=== PATIENT | male | born 1955 | race Caucasian/White ===

== ENCOUNTER 2024-12-22 13:48 | Outpatient (AMB) | payer MEDICARE, SELFPAY ==
--- NOTE | 2024-12-22 13:57 | A.OFFVIS_ITS ---
Intake Visit Reasons: BPH/nocturia Intake Note: Patient is present for BPH/NOCTURIA Urology Medication:TAMSULOSIN Antibiotic Allergy:NONE Blood Thinner:NONE TODAY'S PVR:0ML'S Sod Stripper Required: No Allergies No Known Allergies Allergy (Verified 12/22/24 15:45) Medication List - Last Reviewed 12/22/24 by GRETEL Xie amlodipine 5 mg PO DAILY carvedilol 25 mg PO BID cetirizine 10 mg PO DAILY dulaglutide (Trulicity) mg subcut gabapentin 300 mg PO Q12H isosorbide mononitrate ER 60 mg PO DAILY metformin 500 mg PO QAM omeprazole 20 mg PO DAILY simvastatin 40 mg PO BEDTIME tamsulosin mg PO HPI Comments Details: Mark is a pleasant 69-year-old Nigerian-speaking male patient of Dr. 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 He presents to the office today as a new patient for ongoing lower urinary tract symptoms he has been experiencing. In discussion with the patient today he reports for few months he has been experiencing issues with dysuria, nocturia, urinary frequency, and intermittent right-sided scrotal discomfort. He reports following up with his PCP at which time recommendations were made for urology referral for further assessment evaluation. He brings with him a letter from the PCP that notes an elevated PSA. In further review of patient's medical records it appears PSAs are as follows: PSA 09/20 4.2, 11/20 4.3 When asked he denies any known family history of prostate cancer. RACHEL was performed left-side of the prostate was noted to be boggy otherwise no nodules or masses palpated. We did discussed potential for prostatitis. We discussed potential causes of prostatitis, lower urinary tract symptoms patient is experiencing, as well as intermittent episodes of right-sided testicular discomfort. He denies hematuria, foul smelling urine, changes to urinary stream, flank pain, fever, and or chills. In office urinalysis results reviewed with the patient today. PVR 0 mL. All questions were answered. He otherwise offers no other issues or concerns at this time. Review of Systems Const All systems reviewed & are unremarkable except as noted in HPI and below Physical Exam Const General: cooperative, comfortable, no acute distress, well developed, alert and awake Orientation/consciousness: patient oriented x3 Limitations: language barrier HEENT Head: Yes normal to inspection, Yes normocephalic and Yes atraumatic Ears: hearing grossly normal bilaterally Eyes General: appearance normal, both eyes and all related structures Neck Neck: Yes normal visual inspection and Yes trachea midline Chest Chest palpation & inspection: normal inspection of the chest Resp Effort & Inspection: normal respiratory effort and able to speak in complete sentences Cardio Rate: regular rate GI Inspection: Yes normal to inspection General: Yes no CVA tenderness Back/Spine/Pelvis Back: no CVA tenderness Skin General skin exam: no rashes or lesions noted Neuro General: patient oriented x3 Extrem General: Yes normal to inspection Psych Appearance: grossly normal and well kempt Mental Status: mental status grossly normal Speech and movement: Normal speech and movement present and Clear speech present Affect: normal affect Attitude: cooperative Thought process: Normal thought process present Thought content: Normal thought content present Insight: Fair insight present (Psych) Judgement: Fair judgement present (Psych) Office Procedures Post Void Residual Post Residual Void Post Void Residual (PVR): 0 52938-Ugoj Void Residual by ultrasound Results AMB Urinalysis, Automated UA Leukoctes 0 Meka/uL Last Edit by GRETEL Xie on 12/22/24 14:20 UA Nitrite Negative Last Edit by GRETEL Xie on 12/22/24 14:20 UA Urobilinogen 0.2 mg/dL Last Edit by GRETEL Xie on 12/22/24 14:2 0 UA Protein 0 mg/dL Last Edit by GRETEL Xie on 12/22/24 14:20 UA pH 6.0 Last Edit by GRETEL Xie on 12/22/24 14:20 UA Blood 0 Kelton/uL Last Edit by GRETEL Xie on 12/22/24 14:20 UA Specific Huntington 1.025 Last Edit by GRETEL Xie on 12/22/24 14: 20 UA Ketone Negative Last Edit by GRETEL Xie on 12/22/24 14:20 UA Bilirubin 0 mg/dL Last Edit by GRETEL Xie on 12/22/24 14:20 UA Glucose 0 mg/dL Last Edit by GRETEL Xie on 12/22/24 14:20 Results Reviewed Results Reviewed: Laboratory Last Values Urine pH (Auto) 6.0 12/22/24 14:19 Specific Huntington (Auto) 1.025 12/22/24 14:19 Urine Protein (Auto) 0 mg/dL 12/22/24 14:19 Glucose (UA)(Auto) 0 mg/dL 12/22/24 14:19 Urine Ketones (Auto) Negative 12/22/24 14:19 Urine Blood (Auto) 0 Kelton/uL 12/22/24 14:19 Urine Nitrite (Auto) Negative 12/22/24 14:19 Urine Bilirubin (Auto) 0 mg/dL 12/22/24 14:19 Urine Urobilinogen (Auto) 0.2 mg/dL 12/22/24 14:19 Leukocyte Esterase (Auto) 0 Meka/uL 12/22/24 14:19 Assessment & Plan Assessment & Plan (1) Elevated PSA: Code(s): R97.20 - Elevated prostate specific antigen [PSA] Category: Medical (2) Lower urinary tract symptoms: Code(s): R39.9 - Unspecified symptoms and signs involving the genitourinary system Category: Medical (3) Testicular pain: Code(s): N50.819 - Testicular pain, unspecified Category: Medical (4) Nocturia: Code(s): R35.1 - Nocturia Category: Medical (5) Urinary frequency: Code(s): R35.0 - Frequency of micturition Category: Medical Plan In office urinalysis results with the patient today; as noted above. PVR 0 mL. We did discussed potential causes of lower urinary tract symptoms, right-sided testicular discomfort, and prostatitis We discussed further treatment options of these urological conditions and risks and benefits of these treatment options. Will obtain retroperitoneal ultrasound for further assessment evaluation. Start Bactrim as discussed and prescribed. Discussed obtaining PSA status post completion of antibiotic therapy. Will obtain redraw of PSA. Will obtain scrotal ultrasound. Follow-up in 2-3 months with imaging and labs; or sooner with any issues, concerns, and or questions. Orders: Orders PSA,Total (Free>4and<10) Today N50.819 - Testicular pain, unspecified, R35.0 - Frequency of micturition, R35.1 - Nocturia, R39.9 - Unspecified symptoms and signs involving the genitourinary system, R97.20 - Elevated prostate specific antigen [PSA] AMB Urinalysis Automated Today Z13.9 - Encounter for screening, unspecified US retroperitoneal comp Today N50.819 - Testicular pain, unspecified, R35.0 - Frequency of micturition, R35.1 - Nocturia, R39.9 - Unspecified symptoms and signs involving the genitourinary system, R97.20 - Elevated prostate specific antigen [PSA] US scrotum Today N50.819 - Testicular pain, unspecified Medications: New sulfamethoxazole-trimethoprim 800-160 mg (Bactrim DS) 1 tab PO BID 28 tabs 0RF 14 days N39.0 - Urinary tract infection, site not specified Patient Instructions: The patient had an opportunity to ask questions regarding the treatment plan. All questions were answered. Physical exam, labs, and imaging were discussed and reviewed in detail. As well as risks, benefits, and discussion of treatment choices. No major barriers to understanding were identified. The patient expressed understanding and agreement with the above treatment plan. The patient was made aware they should contact our office by phone for worsening of their current condition, the appearance of new symptoms, or with any questions or concerns. Compliance is encouraged with any medications and follow up testing that is ordered. It is a privilege to be allowed the opportunity to participate in? your urological care.? Again, if you have any questions or concerns If you have any questions or concerns please do not hesitate to contact me. The office is [phone]. This note is constructed using voice recognition software. While every effort has been made to ensure accuracy primary education professor errors may have been included. Yours sincerely, DO Hall Coding Level of Care Code New Pt Level 4 (66253) Diagnoses Elevated PSA R97.20 Lower urinary tract symptoms R39.9 Testicular pain N50.819 Nocturia R35.1 Urinary frequency R35.0 CPT Codes Post Residual Void - PVR CPT Code: 38269-Yrnj Void Residual by ultrasound ([id number])
--- OUTSIDE RECORDS SUMMARY | 2024-12-22 14:45 | XMS_ITS | Encounter Summary ---
Author Organization [facility] [place] [address] Care Team Providers Care Business Analytics Intern Name Role Phone Josué King MD Primary Care Provider [phone] Reason for Visit * Reason Onset Date Comments Elevated PSA 12/14/2024 Encounter Details Date Type Department Care Team ([facility] st Contact Info) Description 12/14/2024 Telephone Adult Medicine [facility] [place] [address], [place] [phone] Orville Wheatley NP [address], [place] Social History Tobacco Use Types Packs/Day Years Used Date Smoking Tobacco: Former Smokeless Tobacco: Former Alcohol Use Standard Drinks/Week Comments No 0 (1 standard drink = 0.6 oz pur e alcohol) Sex and Gender Information Value Date Recorded Sex Assigned at Not on file Legal Sex Male 4:32 AM EST Gender Identity Not on file Sexual Orientation Not on file documented as of this encounter Progress Notes * Gerry Hernandez MA - 12/17/2024 8:34 AM EDT Patient informed PSA has been increasing. Patient states he has been following up with [facility]. He has an upcoming appointment 12/22/2024. Advised him to keep appointment. * Orville Wheatley NP - 12/16/2024 6:34 PM EDT Please follow-up on the message below * Orville Wheatley NP - 12/14/2024 7:28 AM EDT Images from the original note were not included. Patient PSA has been steadily increasing. Will refer to urology Patient is Kinyarwanda-speaking Patient was referred to urology in September 2023. It is unclear if patient has follow-up with urology. Please see referral below. Please call patient and confirm that he has an appointment with urology or has to seen urology. If patient has not seen urology, please provide phone number and address for patient to schedule appointment. 10/14/24 Mark Ford [address] [place] [phone] Dear Mark, After review of the medical information and benefit coverage, [email or web address] [facility] approved your referral. See below for additional details. If you have questions regarding this referral, please contact ([email or web address]). You must be actively enrolled in [email or web address] [facility] for coverage of the authorized service. If you have additional questions regarding your coverage, please contact [facility] [facility] [email or web address] [facility] directly. REFFERAL INFORMATION Referral #: [id number] Authorization#: Auth Status: Authorized Reason: No Approval Necessary - Patient Tracking Referred By Provider: Josué King [address] [facility] [phone] Referred To Provider: [facility] - Urology [address] [place] [address] [place] [phone] Referral Start Date: 10/14/2024 Referral End Date: 10/14/2025 SCHEDULING If you do not already have an appointment, please call [phone] to make an appointment. MORE INFORMATION You can access your medical information, lab results and billing information online at [email or web address]. Sincerely, Referral Relations Department [facility] . documented in this encounter Plan of Treatment Upcoming Encounters Date Type Department Care Team (Late st Contact Info) Description 12/23/2024 10:15 AM EDT Office Visit Adult Medicine [address] [phone] Orville Wheatley NP [address] [place] [address] 02/11/2025 10:00 AM EDT Office Visit Orthopedic Surgery - [address] [phone] Stone Al, DPColleen [address] [place] [phone] documented as of this encounter Visit Diagnoses Not on filedocumented in this encounter Additional Health Concerns Assessment Noted Time PHQ-9 Depression Total Score: 0 06/09/19 25 11:04 AM EST A fall risk assessment has been complete d for the patient 06/09/2024 10:57 AM EST documented as of this encounter Care Teams Business Analytics Intern Relationship Specialty Start Date End Date Josué King MD [address] [place] [address] PCP - General Internal Medicine 01/26/21 documented as of this encounter
--- OUTSIDE RECORDS SUMMARY | 2024-12-22 14:45 | XMS_ITS | Clinical Summary ---
Author Organization [address] [place] [address] Address [address] [place] [address] Phone Care Team Providers [employer] It Disaster Recovery Manager Name Role Phone Josué King MD Primary Care Provider [phone] Allergies No known active allergies Medications aspirin 325 mg tablet Take 1 tablet (325 mg total) by mouth 1 (one) time each day. OTC Active FREESTYLE LANCETS MISC USE TO CHECK BLOO DGLUCOSE EVERY DAY BEFORE BREAKFAST 023 Active blood sugar diagnostic (FreeStyle Lite Strips) test strip Used for blood glucose monitoring before each meal and in the morning 023 Active blood-glucose meter kit See administration instructions. 022 2026 Active FREESTYLE LANCETS MISC USE TO CHECK BLOO DGLUCOSE EVERY DAY BEFORE BREAKFAST 024 Active blood sugar diagnostic (FreeStyle Lite Strips) test strip Used for blood glucose monitoring before each meal and in the morning 024 Active cetirizine (ZyrTEC) 10 mg tablet TAKE 1 TABLET BY MOUTH DAILY 90 tablet 1 025 Active amLODIPine (NORVASC) 5 mg tablet TAKE 1 TABLET BY MOUTH DAILY 90 tablet 1 025 Active nitroglycerin (NITROSTAT) 0.[address] 1 tablet (0.4 mg total) under the tongue every 5 (five) minutes if needed for chest pain. 90 tablet 025 Active acetaminophen (TYLENOL 8 HOUR) 650 mg 8 hr tablet Take 1 tablet (650 mg total) by mouth every 8 (eight) hours if needed for headaches. for pain 60 tablet Active simvastatin (ZOCOR) 40 mg tablet TAKE 1 TABLET BY MOUTH AT BEDTIME 90 tablet Active diclofenac (VOLTAREN) 1 % topical gel APPLY TOPICALLY TO THE AFFECTED AREA TWICE DAILY NEEDED FOR PAIN 100 g Active carvediloL (COREG) 25 mg tablet TAKE 1 TABLET BY MOUTH TWICE DAILY 180 tablet Active gabapentin (NEURONTIN) 300 mg capsule TAKE 1 CAPSULE BY MOUTH EVERY 12 HOURS FOR NERVE PAIN 180 capsule Active dulaglutide (TRULICITY) 0.75 mg/0.5 mL pen injector injectionIndica tions:Essential hypertension Inject 0.5 mL (0.75 mg total) under the skin 1 (one) time per week. 2 mL 6 Active metFORMIN (GLUCOPHAGE) 500 mg tablet Take 1 tablet (500 mg total) by mouth 1 (one) time each day with breakfast. 180 each Active tamsulosin (FLOMAX) 0.4 mg 24 hr capsule TAKE 1 CAPSULE(0.4 MG) BY MOUTH 1 TIME EACH DAY 30 MINUTES AFTER A MEAL AT THE SAME TIME EVERY DAY 90 capsule Active omeprazole (PriLOSEC) [address] capsule TAKE 1 CAPSULE(20 MG) BY MOUTH 1 TIME EACH DAY 90 capsule Active isosorbide mononitrate (IMDUR) 60 mg 24 hr tablet Take 1 tablet (60 mg total) by mouth 1 (one) time each day. Do not crush or chew. 30 each 025 2025 Active Additional Information Patient taking differently: 30 mgoral Daily, Do not crush or chew., Reported on 12/11/2024 gabapentin (NEURONTIN) 300 mg capsule LEG doctor prescribed [address] [place] [address] 2024 Discontinued isosorbide mononitrate (IMDUR) 30 mg 24 hr tablet TAKE 1 TABLET BY MOUTH DAILY 90 tablet 1 025 2024 Discontinued omeprazole (PriLOSEC) [address] capsule Take 1 capsule (20 mg total) by mouth 1 (one) time each day. 90 each 025 2024 Discontinued tamsulosin (FLOMAX) 0.4 mg 24 hr capsule Take 1 capsule (0.4 mg total) by mouth 1 (one) time each day. Capsules should be taken 30 minutes following the same meal each day. 90 each 025 2024 Discontinued metFORMIN (GLUCOPHAGE) 500 mg tablet Take 1 tablet (500 mg total) by mouth 2 (two) times a day with meals. 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) ([facility] V24, [facility] V28) 03/03/2024 Urinary incontinence, post-void dribbling 2020 Diabetic neuropathy ([facility] V24, [facility] V28) 0 12/24/2018 Assessment & Plan (06/09/2024 11:41 AM EST): Type 2 diabetes mellitus wit h cataract ([facility] V24, [facility] V28) 12/24/2018 Assessment & Plan (06/09/2024 11:41 AM EST): Tubular adenoma 12/24/2018 Overview (07/04/2023): 05/2016 CN, Repeat 10 yrs Cataract 12/24/2018 Overview (07/04/2023): 2016 Small bilateral Essential hypertension 04/11/2017 Overview (07/04/2023): Last Assessment & Plan: Patient's blood pressure is well-controlled today with a reading of 124/80. He will continue his current antihypertensive medication regimen with carvedilol, amlodipine as prescribed. Assessment & Plan (06/16/2024 3:04 PM EST): Patient's blood pressure is well-controlled today with a reading 116/70. He will continue his current antihypertensive medication regimen as prescribed with amlodipine, carvedilol as prescribed. 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 08/07/2016 Assessment & Plan (06/09/2024 11:41 AM EST): JUNIE (obstructive sleep apnea) 02/28/2016 Overview (07/04/2023): [facility] Polysomnogram: Date 10/01/2018; Wt 190#; BMI 34; SE 81%; SM 83%; REM 3%; RDI 9 (AHI 8), REM (RDI 24 - AHI 24), Central apneas 4; Obstructive apneas 8; Mixed apneas 0; hypopneas 33; RERAs 2; average oxygen saturation 93% (lowest 73% - without saturations <88% for 5% or more of study); PLMs 13. - Obstructive Sleep Apnea - mild overall and moderate in REM; mostly hypopneas; without sleep related hypoventilation by 2019 polysomnogram. Neurologic disorder associat ed with diabetes mellitus ([facility] V24, [facility] V28) 02/21/2016 GERD (gastroesophageal reflux disease) 6 Mild intermittent asthma without complication Foot drop 12/29/2014 Overview (07/04/2023): Left, r/[place] Status post hip replacement 12/29/2014 Overview (07/04/2023): [place], 2006 [place] CAD (coronary artery disease) 07/02/2014 Overview (07/04/2023): S/p CABG in 2001, Last Assessment & Plan: The patient has a history of coronary artery disease status post coronary artery bypass x 4 in 2001 with known occlusions of the SVG to diagonal graft and SVG to PDA graft. The patient had been reporting episodes of chest discomfort and his medical therapy was optimized. He was started on amlodipine with improvement in his symptoms. At his last office visit his lisinopril was discontinued to allow for further blood pressure room to increase his amlodipine as an antianginal. He continues on amlodipine 5 mg orally daily and denies any further episodes of chest discomfort or shortness of breath on exertion. He also continues on aspirin, carvedilol, and simvastatin as prescribed. At this point, we will continue current therapies. Patient advised to seek emergency medical attention by calling 911 if they were to develop severe dyspnea, chest pain that did not resolve with rest or nitroglycerin, or if they were to faint. Assessment & Plan (06/16/2024 3:04 PM EST): Patient has a history of coronary artery disease status post bypass in 2001 with known occlusions of the SVG to diagonal and SVG to PDA grafts. Overall, he reports he has been feeling well from a cardiac standpoint and denies any further episodes of chest pain. He denies any anginal symptoms. He will continue his current medical therapy with isosorbide mononitrate, amlodipine, beta-wendi, statin and aspirin as prescribed. Patient advised to seek emergency medical attention by calling 911 if they were to develop severe dyspnea, chest pain that did not resolve with rest or nitroglycerin, or if they were to faint. Orders: ECG 12 lead Assessment & Plan (06/09/2024 11:41 AM EST): Orders: Ambulatory referral to Cardiology; Future Hyperlipidemia 07/02/2014 Overview (07/04/2023): Last Assessment & Plan: Patient has a history of hyperlipidemia as well as a history of coronary artery disease. His last LDL cholesterol is noted to be 64. His goal is less than 70 given his history. At this point he will continue his current dose of simvastatin as prescribed. Assessment & Plan (06/16/2024 3:04 PM EST): Patient has a history of hyperlipidemia as well as a history of coronary artery disease. Recent fasting lipid panel 05/29/2024 showed an LDL cholesterol of 57 and at goal. He will continue his current statin therapy as prescribed. Assessment & Plan (06/09/2024 11:41 AM EST): BPH (benign prostatic hyperplasia) 07/02/2014 Assessment & Plan (06/09/2024 11:41 AM EST): Orders: Ambulatory referral to Urology; Future Resolved Problems Problem Noted Date Diagnosed Date Resolved Date Palpitations 10/18/2020 06/16/2024 Overview (07/04/2023): Last Assessment & Plan: When patient was initially seen in 09/2020 he reported occasional palpitations. He did wear Holter monitor subsequently that did not show any underlying arrhythmias. Encounters Date Type Department Care Team Description 12/14/2024 Telephone Adult Medicine [address] [phone] Orville Wheatley NP 12/11/2024 12:55 PM EDT - 12/11/2024 3:51 PM EDT Emergency [facility] Emergency [address] [place] [phone] Elliott Terrell MD Chest pain, unspecified type (Primary Dx) Discharge Disposition: Home or Self Care 12/11/2024 10:40 AM EDT Office Visit [facility] [address] [facility] [address] [place] [phone] Abby Garcia NP Chest discomfort (Primary Dx) 12/08/2024 10:00 AM EDT Office Visit Adult [address] [phone] Orville Wheatley NP Intermittent chest pain (Primary Dx); Coronary artery disease involving re[place]-sparks coronary artery of re[place]sparks heart without angina pectoris; Other hyperlipidemia; Essential hypertension; Type 2 diabetes mellitus with cataract ([facility] V24, [facility] V28) 11/27/2024 Telephone Adult Medicine [address] [phone] Orville Wheatley NP 11/11/2024 10:00 AM EDT Office Visit Orthopedic Surgery - [address] [phone] Stone Al, DPM Closed displaced fracture of right calcaneus with malunion, unspecified portion of calcaneus, subsequent encounter (Primary Dx); Primary osteoarthritis of both feet; Type II diabetes mellitus with peripheral circulatory disorder ([facility] V24, [facility] V28); Dermatophytosis of nail; Pain in toe of right foot; Pain in toe of left foot; Diabetic mononeuropathy simplex ([facility] V24, [facility] V28); Metatarsalgia of both feet; Corns and callosities 10/07/2024 Telephone Adult Medicine [address] [phone] Josué King MD 10/06/2024 Telephone Adult Medicine [address] [phone] Josué King MD from Last 3 Months Immunizations Name Administration Dates Next Due Influenza Quadravalent, MDCK , 0.5ml, with preservative (Flucelvax) 6mo and older 01/29/2018 Influenza trivalent, 0.5mL (Fluad) 65yo and olde r 01/09/2024 Influenza trivalent, 0.5mL ( Fluzone High-dose) 65yo and older 01/26/2021,02/28/2016 Influenza trivalent, with pr eservative (Fluzone; Afluria) 6mo and older 02/28/2016 Pneumococcal conjugate 13 va lent (Prevnar 13, PCV13) 2mo and older 02/28/2016 Pneumococcal polysaccharide 23 valent (Pneumovax 23) 2yo and older 09/11/2018 Tdap Tetanus diptheria acell ular pertussis (Boostrix; Adacel) 7yo and older 05/04/2016 Surgical History Surgery Date Site/Laterality Comments CORONARY ARTERY BYPASS GRAFT 2001 PROCEDURE: HISTORICAL CABG; COMMENT: [place] HIP ARTHROPLASTY 2006 Left PROCEDURE: HISTORICAL HIP REPLACEMENT; COMMENT: [place], sciatic nerve issues & foot drop following surgery ANKLE SURGERY 2004 Left PROCEDURE: HISTORICAL ANKLE SURGERY APPENDECTOMY PROCEDURE: HISTORICAL APPENDECTOMY COLONOSCOPY 05/16/2016 PROCEDURE: HISTORICAL COLONOSCOPY; COMMENT: Tubular Adenoma, Repeat 10 yrs CARDIAC CATHETERIZATION 2004 PROCEDURE: HISTORICAL CARDIAC CATH Medical History Medical History Date Comments GERD (gastroesophageal reflu x disease) 01/12/2016 DX:GERD (gastroesophageal re flux disease) JUNIE (obstructive sleep apnea) 02/28/2016 DX :JUNIE (obstructive sleep apnea) Common peroneal nerve dysfun ction of left lower extremity 08/07/2016 DX:Common peroneal nerve dys function of left lower extremity Essential hypertension 04/11/2017 DX:Essent ial hypertension Diabetic neuropathy ([facility] V24, [facility] V28) 12/24/2018 DX:Diabetic neuropathy (HCC) DM (diabetes mellitus), type 2 with neurological complications ([facility] V24, [facility] V28) 02/21/2016 DX:DM (diabetes mellitus), t ype 2 with neurological complications (HCC) Cataract 12/24/2018 DX:Cataract; COM MENT: 2016 Small bilateral Foot drop 12/29/2014 DX:Foot drop; CO MMENT: Left, r/[place] hip [place] Status post hip replacement 12/29/2014 DX:S tatus post hip replacement; COMMENT: Left, 2005 [place] Type 2 diabetes mellitus wit h cataract ([facility] V24, [facility] V28) 12/24/2018 DX:Type 2 diabetes mellitus with cataract (HCC) Tubular adenoma 12/24/2018 DX:Tubular adeno ma; COMMENT: 05/2016 CN, Repeat 10 yrs BPH (benign prostatic hyperplasia) 07/02/2014 DX:BPH (benign prostatic hyperplasia) CAD (coronary artery disease) 07/02/2014 DX :CAD (coronary artery disease); COMMENT: S/p CABG in 2001, f/u cardiology at [facility] Edema 12/29/2014 DX:Edema Hyperlipidemia 07/02/2014 DX:Hyperlipidemi a Mild intermittent asthma wit hout complication 10/12/2015 DX:Mild intermittent asthma without complication Family history of cardiovasc ular disease DX:Family history of cardiov ascular disease Family History Medical History Relation Name Comments Other: stomach cancer Brother Heart failure Father Other: stomach cancer Father Relation Name Status Comments Brother Father unknown Social History Tobacco Use Types Packs/Day Years Used Date Smoking Tobacco: Former Smokeless Tobacco: Former Tobacco Cessation:Counseling Given: Not Answered Alcohol Use Standard Drinks/Week Comments No 0 (1 standard drink = 0.6 oz pur e alcohol) Sex and Gender Information Value Date Recorded Sex Assigned at Not on file Legal Sex Male 4:32 AM EST Gender Identity Not on file Sexual Orientation Not on file Obstetrics History Last Filed Vital Signs Vital Sign Reading Time Taken Comments Blood Pressure 119/78 12/11/2024 11:16 AM EDT Pulse 63 12/11/2024 11:16 AM EDT Temperature 36.6 C (97.9 F) 12/11/2024 11:16 AM EDT Respiratory Rate 16 12/11/2024 11:16 AM EDT Oxygen Saturation 96% 12/11/2024 11:16 AM EDT Inhaled Oxygen Concentration - - Weight 85.3 kg (188 lb) 12/11/2024 11:16 AM EDT Height 162.6 cm (5' 4 ) 12/11/2024 11:16 AM EDT Body Mass Index 32.27 12/11/2024 11:16 AM EDT Plan of Treatment Upcoming Encounters Date Type Department Care Team (Late st Contact Info) Description 12/23/2024 10:15 AM EDT Office Visit Adult Medicine [facility] [address] [place] [address] Orville Wheatley NP [address] [place], [place] 02/11/2025 10:00 AM EDT Office Visit Orthopedic Surgery - [place] [address] [place] [phone] Stone Al, PATRICIA [address] [place] [address] Health Maintenance Due Date Last Done Comments Zoster Vaccines (1 of 2) 07/21/2003 RSV Immunization Adult Patients (1 - Risk 60-74 years 1-dose series) 2013 Colorectal Cancer Screening: Stool Based Tests (FOBT/FIT) 04/07/2022 Social Influencers of Health Screening 04/07/2022 COVID-19 Vaccine ( season) 2023 03/08/2021, 09/05/2020, 08/08/2020 Diabetes: Annual Retina Eye Exam 06/18/2024 06/18/2023 Diabetes: Annual Foot Exam 07/08/2024 07/09/2023 Influenza Vaccine (#1) 2024 , 01/26/2021, 01/29/2018, Additional history exists Diabetes: Blood Sugar Control Test (HGBA1C) 03/10/2025 09/07/2024, 05/29/2024, 10/09/2023, Additional history exists Falls Risk Assessment 06/09/2025 06/09/2024, 024 Diabetes: Annual Urine Albumin-Creatinine Ratio (uACR) 09/07/2025 09/07/2024, 07/01/2023 Diabetes: Annual GFR (Glomerular Filtration Rate) 12/11/2025 12/11/2024, 12/08/2024, 09/07/2024, Additional history exists Hypertension/CHF/CAD Annual BMP Blood Test 12/11/2025 12/11/2024, 12/08/2024, 09/07/2024, Additional history exists DTaP,Tdap,and Td Vaccines (2 - Td or Tdap) 05/04/2026 05/04/2016 Cholesterol Screening (Lipid Panel) 05/29/2029 05/29/2024, 11/19/2022 Hepatitis C Screening Completed 05/04/2016, 017 Colorectal Cancer Screening: Colonoscopy Discontinued 05/16/2016 Pneumococcal Vaccine: 50+ Years Completed 09/11/2018, 02/28/2016 Abdominal Aortic Aneurysm (AAA) Screen Completed 04/13/2019, 04/13/2019 Depression Screening Completed 06/09/2024, 06/06/19 24 Medicare Annual Wellness Visit Discontinued 06/09/2024 HIB Vaccines Aged Out No longer eligi ble based on patient's age to complete this topic HPV Vaccines Aged Out No longer eligi ble based on patient's age to complete this topic Hepatitis A Vaccines Aged Out No long er eligible based on patient's age to complete this topic Hepatitis B Vaccines Aged Out No long er eligible based on patient's age to complete this topic IPV Vaccines Aged Out No longer eligi ble based on patient's age to complete this topic MMR Vaccines Aged Out No longer eligi ble based on patient's age to complete this topic Meningococcal ACWY Vaccine Aged Out N o longer eligible based on patient's age to complete this topic Meningococcal B Vaccine Aged Out No l onger eligible based on patient's age to complete this topic RSV Immunization Patients Under 20 months Aged Out No longer eligible based on patient's age to complete this topic Varicella Vaccines Aged Out No longer eligible based on patient's age to complete this topic Procedures Procedure Name Priority Date/Time Associated Diagnosis Comments ECG ANNOTATED 12/14/2024 ECG 12-LEAD Routine 12/11/2024 2:12 PM EDT TROPONIN I HIGH SENSITIVITY Timed 12/11/2024 2:04 PM EDT ECG 12-LEAD Routine 12/11/2024 1:55 PM EDT Chest discomfort ECG 12-LEAD STAT 12/11/2024 1:54 PM EDT CBC WITH AUTO DIFFERENTIAL STAT 12/11/2024 12:44 PM EDT B-TYPE NATRIURETIC PEPTIDE STAT 12/11/2024 12:44 PM EDT MAGNESIUM STAT 12/11/2024 12:44 PM EDT LIPASE STAT 12/11/2024 12:44 PM EDT COMPREHENSIVE METABOLIC PANEL STAT 12/11/2024 12:44 PM EDT CBC AND DIFFERENTIAL STAT 12/11/2024 12:44 PM EDT TROPONIN I HIGH SENSITIVITY Timed 12/11/2024 12:44 PM EDT ECG 12-LEAD Routine 12/08/2024 5:04 PM EDT Intermittent chest pain PROSTATE SPECIFIC ANTIGEN SCREEN Routine 12/08/2024 11:43 AM EDT Encounter for screening for malignant neoplasm of prostate BASIC METABOLIC PANEL Routine 12/08/2024 11:43 AM EDT Essential hypertension MICROALBUMIN CREATININE URINE RATIO Routine 09/07/2024 11:11 AM EDT Type 2 diabetes mellitus with cataract ([facility] V24, [facility] V28) Other hyperlipidemia Essential hypertension Gastroesophageal reflux disease without esophagitis Benign prostatic hyperplasia, unspecified whether lower urinary tract symptoms present Encounter for screening for malignant neoplasm of prostate HEMOGLOBIN A1C Routine 09/07/2024 11:11 AM EDT Type 2 diabetes mellitus with cataract ([facility]/HCC V24, [facility]/HCC V28) Other hyperlipidemia Essential hypertension Gastroesophageal reflux disease without esophagitis Benign prostatic hyperplasia, unspecified whether lower urinary tract symptoms present Encounter for screening for malignant neoplasm of prostate LIPID PANEL WITH REFLEX TO DIRECT LDL Routine 05/29/2024 9:39 AM EST Diabetic neuropathy (CMS/HCC V24, [facility]/HCC V28) Type 2 diabetes mellitus with cataract ([facility]/HCC V24, [facility]/HCC V28) Essential hypertension Gastroesophageal reflux disease, unspecified whether esophagitis present Hyperlipidemia, unspecified hyperlipidemia type Type I (juvenile type) diabetes mellitus with neurological manifestations, 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) ([facility]/HCC V24, [facility]/HCC V28) BPH (benign prostatic hyperplasia) CAD (coronary artery disease) FALLS RISK ASSESSMENT Routine 07/09/2023 DIABETES FOOT EXAM Routine 07/09/2023 DIABETES EYE EXAM Routine 06/18/2023 DEPRESSION SCREENING Routine 06/06/2023 US ABDOMINAL AORTA REAL TIME SCREEN STUDY AAA Routine 04/13/2019 8:37 AM EST Essential (primary) hypertension Type 2 diabetes mellitus with other diabetic neurological complication ([facility] V24, [facility] V28) Encounter for screening for cardiovascular disorders COLONOSCOPY Routine 05/16/2016 HEPATITIS C SCREENING Routine 05/04/2016 from Last 3 Months or Most Recently Relevant to Health Maintenance Results * ECG-Annotated (12/14/2024) Provider Eileen WALTERS ECG ORDERABLES Final Result * ECG 12 lead (12/11/2024 2:12 PM EDT) Only the most recent of4 resultswithin the time period is included. Pathologist [facility] Ventricular Rate ECG 56 BPM GEMUSE Atrial Rate 56 BPM GEMUSE P-R Interval 150 ms GEMUSE QRS Duration 94 ms GEMUSE Q-T Interval 444 ms GEMUSE QTc 428 ms GEMUSE P Wave [place] 53 degrees GEMUSE R [place] 29 degrees GEMUSE T [place] 47 degrees GEMUSE ECG Interpretation Sinus bradycardia Otherwise normal ECG When compared with ECG of 11-DEC-2024 11:10, No significant change was found Confirmed by MD ARIEL, BRANDAN ([id number]) on 12/11/2024 10:51:38 PM GEMUSE 12/11/2024 2:12 PM EDT 12/11/2024 10:51 PM EDT Elliott Terrell MD ECG ORDERABLES Final Result GEMUSE * Troponin I high sensitivity (12/11/2024 2:04 PM EDT) Only the most recent of2 resultswithin the time period is included. [facility] High Sensitivity Troponin I 5 <=79 ng/L LAB CHEMISTRY METHOD 12/11/2024 3:10 PM EDT [facility] Blood Venous blood specimen / Unknown Venipuncture / Unknown 12/11/2024 2:04 PM EDT 12/11/2024 2:35 PM EDT Narrative [facility] - 12/11/2024 3:10 PM EDT High levels of biotin in samples may falsely decrease hsTroponin values. Use caution when interpreting hsTroponin results in patients taking biotin who exhibit renal impairment (eGFR <60) or in patients taking more than 20 mg/day of biotin. us Magdi Koehler MD LAB BLOOD ORDERABLES Final Resu lt [facility] [address] [place] [address], [place] [phone] * (ABNORMAL) CBC auto differential (12/11/2024 12:44 PM EDT) WBC 6.7 4.8 - 10.8 K/mcL LAB HEMETOLOGY METHOD 12/11/2024 1:43 PM EDT [facility] RBC 5.30 4.50 - 5.50 M/mcL LAB HEMETOLOGY METHOD 12/11/2024 1:43 PM EDT [facility] Hemoglobin 14.1 13.5 - 17.5 g/dL LAB HEMETOLOGY METHOD 12/11/2024 1:43 PM EDT [facility] Hematocrit 43.0 42.0 - 54.0 % LAB HEMETOLOGY METHOD 12/11/2024 1:43 PM EDT [facility] MCV 81.1 79.0 - 98.0 FL LAB HEMETOLOGY METHOD [facility]/11[facility]24 [facility] MCH 26.6(L) 27.0 - 32.0 pcg LAB HEMETOLOGY METHOD 12/11/2024 1:43 PM EDT [facility] MCHC 32.8 32.0 - 37.0 g/dL LAB HEMETOLOGY METHOD 12/11/2024 1:43 PM EDT [facility] RDW 14.2 11.0 - 15.0 % LAB HEMETOLOGY METHOD 12/11/2024 1:43 PM EDT [facility] Platelets 236 130 - 400 K/mcL LAB HEMETOLOGY METHOD 12/11/2024 1:43 PM EDT [facility] MPV 10.6 7.0 - 11.0 FL LAB HEMETOLOGY METHOD 12/11[facility]2024 1[facility] NRBC 0.0 <1.0 % LAB HEMETOLOGY METHOD 12/11/2024 1:43 PM [facility] NRBC Absolute 0.00 <0.10 K/mcL LAB HEMETOLOGY METHOD 12/11/2024 1:43 PM [facility] Neutrophils Relative 49.7 % LAB HEMETOLOGY METHOD 12/11/2024 1:43 PM [facility] Lymphocytes Relative 36.3 % LAB HEMETOLOGY METHOD 12/11/2024 1:43 PM [facility] Monocytes Relative 9.1 % LAB HEMETOLOGY METHOD 12/11/2024 1:43 PM [facility] Eosinophils Relative 3.6 % LAB HEMETOLOGY METHOD 12/11/2024 1:43 PM [facility] Basophils Relative 0.9 % LAB HEMETOLOGY METHOD 12/11/2024 1:43 PM [facility] Immature Granulocytes Relative 0.4 % LAB HEMETOLOGY METHOD 12/11/2024 1:43 PM [facility] Neutrophils Absolute 3.35 1.50 - 7.00 K/mcL LAB HEMETOLOGY METHOD 12/11/2024 1:43 PM [facility] LAB Lymphocytes Absolute 2.44 1.00 - 5.00 K/mcL LAB HEMETOLOGY METHOD 12/11/2024 1:43 PM [facility] LAB Monocytes Absolute 0.61 0.20 - 1.00 K/mcL LAB HEMETOLOGY METHOD 12/11/2024 1:43 PM [facility] LAB Eosinophils Absolute 0.24 0.00 - 0.50 K/mcL LAB HEMETOLOGY METHOD 12/11/2024 1:43 PM [facility] LAB Basophils Absolute 0.06 0.00 - 0.20 K/[facility] LAB HEMETOLOGY METHOD 12/11/2024 1:43 PM EDT [facility] Immature Granulocytes Absolute 0.03 0.00 - 0.03 K/[facility] LAB HEMETOLOGY METHOD 12/11/2024 1:43 PM EDT [facility] Blood Venous blood specimen / Unknown Venipuncture / Unknown 12/11/2024 12:44 PM EDT 12/11/2024 1:33 PM EDT us Magdi Koehler MD LAB BLOOD ORDERABLES Final Resu lt Performing Organization Address City/[facility]/ZIP Co de Phone Number [facility] [address] [place] [address], [place] [phone] * B-type natriuretic peptide (12/11/2024 12:44 PM EDT) BNP 22 <=100 pcg/mL LAB CHEMISTRY METHOD 12/11/2024 2:30 PM EDT [facility] Blood Venous blood specimen / Unknown Venipuncture / Unknown 12/11/2024 12:44 PM EDT 12/11/2024 1:33 PM EDT us Magdi Koehler MD LAB BLOOD ORDERABLES Final Resu lt [facility] [address] [place] [address], [place] [phone] * Magnesium (12/11/2024 12:44 PM EDT) Magnesium 2.1 1.9 - 2.6 mg/dL LAB CHEMISTRY METHOD 12/11/2024 2:04 PM EDT [facility] Blood Venous blood specimen / Unknown Venipuncture / Unknown 12/11/2024 12:44 PM EDT 12/11/2024 1:33 PM EDT us Magdi Koehler MD LAB BLOOD ORDERABLES Final Resu lt Performing Organization Address City/[facility]/ZIP Co de Phone Number [facility] [address] [place] [address], [place] [phone] * Lipase (12/11/2024 12:44 PM EDT) Pathologist [facility] Lipase 28 13 - 75 unit/L LAB CHEMISTRY METHOD 12/11/2024 2:04 PM EDT [facility] Blood Venous blood specimen / Unknown Venipuncture / Unknown 12/11/2024 12:44 PM EDT 12/11/2024 1:33 PM EDT us Magdi Koehler MD LAB BLOOD ORDERABLES Final Resu lt Performing Organization Address [facility]/ZIP Co de Phone Number [facility] [address] [place] [address], [place] [phone] * Comprehensive metabolic panel (12/11/2024 12:44 PM EDT) [facility] Sodium 138 133 - 145 mmol/L LAB CHEMISTRY METHOD 12/11/2024 2:14 PM EDT [facility] Potassium 4.4 3.5 - 5.5 mmol/L LAB CHEMISTRY METHOD 12/11/2024 2:14 PM EDT [facility] Chloride 105 96 - 110 mmol/L LAB CHEMISTRY METHOD 12/11/2024 2:14 PM T [facility] CO2 28 21 - 32 mmol/L LAB CHEMISTRY METHOD 12/11/2024 2:14 PM EDT [facility] Anion Gap 5 3 - 11 LAB CHEMISTRY METHOD 12/11/2024 2:14 PM EDT [facility] Glucose 87 70 - 100 mg/dL LAB CHEMISTRY METHOD 12/11/2024 2:14 PM EDT [facility] BUN 19 5 - 25 mg/dL LAB CHEMISTRY METHOD 12/11/2024 2:14 PM [facility] Creatinine 1.09 0.70 - 1.30 mg/dL LAB CHEMISTRY METHOD 12/11/2024 2:14 PM [facility] LAB eGFR 73 >=60 mL/min/1. 73m2 LAB CHEMISTRY METHOD 12/11/2024 2:14 PM [facility] LAB Comment:Calculation based on the Chronic Kidney Disease Epidemiology Collaboration (CKD-EPI) equation refit without adjustment for race. BUN/Creatinine Ratio 17.4 LAB CHEMISTRY METHOD 12/11/2024 2:14 PM [facility] Calcium 10.2 8.5 - 10.5 mg/dL LAB CHEMISTRY METHOD 12/11/2024 2:14 PM [facility] AST (SGOT) 13 10 - 42 unit/L LAB CHEMISTRY METHOD 12/11/2024 2:14 PM [facility] ALT (SGPT) 17 10 - 60 unit/L LAB CHEMISTRY METHOD 12/11/2024 2:14 PM [facility] Alkaline Phosphatase 85 42 - 121 unit/L LAB CHEMISTRY METHOD 12/11/2024 2:14 PM [facility] Total Protein 7.5 6.0 - 8.0 g/dL LAB CHEMISTRY METHOD 12/11/2024 2:14 PM [facility] Albumin 4.0 3.2 - 5.0 g/dL LAB CHEMISTRY METHOD 12/11/2024 2:14 PM [facility] Total Bilirubin 0.4 0.0 - 1.4 mg/dL LAB CHEMISTRY METHOD 12/11/2024 2:14 PM [facility] Blood Venous blood specimen / Unknown Venipuncture / Unknown 12/11/2024 12:44 PM EDT 12/11/2024 1:33 PM EDT Magdi Koehler MD LAB BLOOD ORDERABLES Final Resu lt [facility] [address] [place] [address], * (ABNORMAL) Prostate specific antigen screen (12/08/2024 11:43 AM EDT) PSA 4.31(H) 0.00 - 4.00 ng/mL LAB CHEMISTRY METHOD 12/08/2024 5:12 PM EDT [facility] Blood Venous blood specimen / Unknown Venipuncture / Unknown 12/08/2024 11:43 AM EDT 12/08/2024 11:44 AM EDT Narrative [facility] - 12/08/2024 5:12 PM EDT The Siemens Advia Silverback Mediaaur Chemiluminescent Immunoassay is used. Results obtained with different assay methods or kits cannot be used interchangeably. Results cannot be interpreted as absolute evidence of the presence or absence of malignant disease. Orville Wheatley NP LAB BLOOD ORDERABLES Final R esult Performing Organization Address City/[facility]/ZIP Co de Phone Number [facility] [address] [place] [address], * (ABNORMAL) Basic metabolic panel (12/08/2024 11:43 AM EDT) Sodium 139 133 - 145 mmol/L LAB CHEMISTRY METHOD 12/08/2024 4:32 PM EDT [facility] Potassium 4.3 3.5 - 5.5 mmol/L LAB CHEMISTRY METHOD 12/08/2024 4:32 PM EDT [facility] Chloride 108 96 - 110 mmol/L LAB CHEMISTRY METHOD 12/08/2024 4:32 PM EDT [facility] CO2 27 21 - 32 mmol/L LAB CHEMISTRY METHOD 12/08/2024 4:32 PM EDT [facility] Anion Gap 4 3 - 11 LAB CHEMISTRY METHOD 12/08/2024 4:32 PM EDT [facility] Glucose 121(H) 70 - 100 mg/dL LAB CHEMISTRY METHOD 12/08/2024 4:32 PM EDT [facility] BUN 23 5 - 25 mg/dL LAB CHEMISTRY METHOD 12/08/2024 4:32 PM EDT [facility] Creatinine 1.11 0.70 - 1.30 mg/dL LAB CHEMISTRY METHOD 12/08/2024 4:32 PM EDT [facility] eGFR 71 >=60 mL/min/1. 73m2 LAB CHEMISTRY METHOD 12/08/2024 4:32 PM EDT [facility] Comment:Calculation based on the Chronic Kidney Disease Epidemiology Collaboration (CKD-EPI) equation refit without adjustment for race. BUN/Creatinine Ratio 20.7 LAB CHEMISTRY METHOD 12/08/2024 4:32 PM EDT [facility] Calcium 10.1 8.5 - 10.5 mg/dL LAB CHEMISTRY METHOD 12/08/2024 4:32 PM T [facility] Blood Venous blood specimen / Unknown Venipuncture / Unknown 12/08/2024 11:43 AM EDT 12/08/2024 11:44 AM EDT us Orville Wheatley HAM FACER LAB BLOOD ORDERABLES Final R esult [facility] [address] [place] [address], * Microalbumin creatinine urine ratio (09/07/2024 11:11 AM EDT) Creatinine, Urine 106.0 mg/dL LAB CHEMISTRY METHOD 09/07/2024 2:16 PM EDT [facility] Microalb, Ur 7.2 0.0 - 29.0 mg/L LAB CHEMISTRY METHOD 09/07/2024 2:16 PM EDT [facility] Microalb/Creat Ratio 7 <30 mg/g creat LAB CHEMISTRY METHOD 09/07/2024 2:16 PM EDT [facility] Urine Urine specimen obtained by clean catch procedure / Unknown Non-blood Collection / Unknown 09/07/2024 11:11 AM EDT 09/07/2024 11:11 AM EDT Orville Wheatley HAM FACER LAB URINE ORDERABLES Final R esult Performing Organization Address [facility]/ZIP Co de Phone Number [facility] [address] [place] [address], [place] [phone] * Hemoglobin A1c (09/07/2024 11:11 AM EDT) Hemoglobin A1C 6.3 <6.5 % LAB CHEMISTRY METHOD 09/07/2024 10:15 PM EDT [facility] Mean Bld Glu Estim. 134 mg/dL LAB CHEMISTRY METHOD 09/07/2024 10:15 PM EDT [facility] Blood Venous blood specimen / Unknown Venipuncture / Unknown 09/07/2024 11:11 AM EDT 09/07/2024 11:11 AM EDT Orville Wheatley HAM FACER LAB BLOOD ORDERABLES Final R esult Performing Organization Address City/[facility]/ZIP Co de Phone Number [facility] [address] [place] [address], [place] [phone] * Lipid panel with reflex to direct LDL (05/29/2024 9:39 AM EST) Cholesterol 136 0 - 200 mg/dL LAB CHEMISTRY METHOD 05/29/2024 2:17 PM EST [facility] Triglycerides 85 0 - 150 mg/dL LAB CHEMISTRY METHOD 05/29/2024 2:17 PM EST [facility] HDL 62 >=40 mg/dL LAB CHEMISTRY METHOD 05/29/2024 2:17 PM EST [facility] LDL Calculated 57 0 - 100 mg/dL LAB CHEMISTRY METHOD 05/29/2024 2:17 PM EST [facility] VLDL Cholesterol Royce 17 mg/dL LAB CHEMISTRY METHOD 05/29/2024 2:17 PM EST [facility] Non HDL Chol. (LDL+VLDL) 74 <145 mg/dL LAB CHEMISTRY METHOD 05/29/2024 2:17 PM EST [facility] Chol/HDL Ratio 2.2 0.0 - 4.4 LAB CHEMISTRY METHOD 05/29/2024 2:17 PM EST [facility] Blood Venous blood specimen / Unknown Venipuncture / Unknown 05/29/2024 9:39 AM EST 05/29/2024 9:39 AM EST Orville Wheatley NP LAB BLOOD ORDERABLES Final R esult Performing Organization Address City/State/[facility] Co de Phone Number [facility] [address] [place] [address], * Falls Risk Assessment (07/09/2023) [facility] Falls Risk Assessment Abstracted [facility] Provider HEALTH MAINTENANCE Final Result * Diabetes Foot Exam (07/09/2023) [facility] Diabetes: Annual Foot Exam Abstracted [facility] Provider HEALTH MAINTENANCE Final Result * Diabetes Eye Exam (06/18/2023) [facility] Diabetes: Annual Retina Eye Exam Abstracted Historical Provider HEALTH MAINTENANCE Final Result * Depression Screening (06/06/2023) [facility] Depression Screening Abstracted [facility] Provider HEALTH MAINTENANCE Final Result * US ABDOMINAL AORTA REAL TIME SCREEN STUDY AAA (04/13/2019 8:37 AM EST) Anatomical Region Laterality Modality Ultrasound 04/07/2019 1:55 PM EST Narrative 04/13/2019 8:46 AM EST EXAM: Abdominal aorta ultrasound, AAA screening HISTORY: Hypertension. Elevated HDL. COMPARISON: None FINDINGS: Proximal aorta measures 2.5 cm in maximal diameter. Mid aorta measures 1.9 cm. Distal aorta measures 1.6 cm. Proximal right common iliac artery measures 1.2 cm. Proximal left common iliac artery measures 1.3 cm. IMPRESSION: IMPRESSION: No evidence of an abdominal aortic aneurysm. Procedure Note Lizette Salazar MD - 04/17/2022 EXAM: Abdominal aorta ultrasound, AAA screening HISTORY: Hypertension. Elevated HDL. COMPARISON: None FINDINGS: Proximal aorta measures 2.5 cm in maximal diameter. Mid aortameasures 1.9 cm. Distal aorta measures 1.6 cm. Proximal right common iliac artery measures1.2 cm. Proximal left common iliac artery measures 1.3 cm. IMPRESSION: IMPRESSION: No evidence of an abdominal aortic aneurysm. [facility] TELLEZ PROCEDURES Final Resul t * Colonoscopy (05/16/2016) Pathologist [facility] Colonoscopy No interpretation , Abstracted Anatomical Region Laterality Modality Other Historical Provider HEALTH MAINTENANCE Final Result * Hepatitis C Screening (05/04/2016) Pathologist [facility] Hepatitis C Screening Abstracted Historical Provider HEALTH MAINTENANCE Final Result from Last 3 Months or Most Recently Relevant to Health Maintenance Insurance [employer] [employer] [employer] Member Subscriber Plan / Payer (Ef fective 2019-Present) Name:Mark BEY Relation to Subscriber:Self Name:Mark Ford Payer ID:[id number] Group ID:[id number] Type:Not on file Address: [place] [address] [address] [phone] Care Teams It Disaster Recovery Manager Relationship Specialty Start Date End Date Josué King MD [address] [place] [address] PCP - General Internal Medicine 01/26/21
== END 2024-12-22 14:49 | disposition home or self-care (01) ==
LOC: HO.HUSH 13:49
PROVIDERS: PCP Internal Medicine; Visit Provider Nurse Practitioner Family
DX: R97.20 Elevated prostate specific antigen [PSA] (principal); R39.9 Unspecified symptoms and signs involving the genitourinary system; N50.819 Testicular pain, unspecified; R35.1 Nocturia; R35.0 Frequency of micturition; Z13.9 Encounter for screening, unspecified
CPT/HCPCS: 99204

== ENCOUNTER → 2024-12-22 13:48 | Outpatient (BNVA) | payer OTHER, SELFPAY | PROVIDERS: PCP Internal Medicine; Visit Provider Nurse Practitioner Family | DX: R97.20 Elevated prostate specific antigen [PSA] (principal); R39.9 Unspecified symptoms and signs involving the genitourinary system; N50.819 Testicular pain, unspecified; R35.1 Nocturia; R35.0 Frequency of micturition | CPT/HCPCS: 51798; 81003; 99202 ==

== ENCOUNTER 2025-03-08 14:55 | Outpatient (REF) | payer OTHER, SELFPAY ==
--- NOTE | ~2025-03-08 | US_ITS ---
EXAMINATION: US SCROTUM CLINICAL INFORMATION: Testicular pain COMPARISON: None available. TECHNIQUE: A sonogram of the scrotum was performed assessing bergeron-scale appearance and color Doppler flow. Spectral Doppler analysis of the arterial and venous flow were performed in the testes bilaterally. FINDINGS: RIGHT: Right testicle measures 4.0 x 4.78 x 2.46 cm, volume 24.6 mL. No focal testicular parenchymal lesions are visualized. Spectral Doppler analysis of the arterial and venous flow is normal in the right testis. There is echogenic calcification along the lower pole right scrotum question calcification measuring 0.3 x 0.2 x 0.7 cm. Right epididymal head is normal in size. There is a right hydrocele with echogenic debris within. No varicocele seen. Right epididymal Doppler flow is normal. LEFT: Left testicle measures 5.01 x 2.39 x 2.83 cm, volume 17.7 mL. No focal testicular parenchymal lesions are visualized. There is round hypoechoic subcortical lesion measuring 0.4 x 0.4 x 0.6 cm likely a small appendix testes. Spectral Doppler analysis of the arterial and venous flow is normal in the left testis. Left epididymal head is normal in size. There is small epididymal cyst measuring 0.5 0.4 x 0.5 cm. Very small complex hydrocele is noted at the bottom of the scrotum. No varicocele is seen. Left epididymal Doppler flow is normal. US/US scrotum IMPRESSION: Normal testes. Bilateral normal testes and epididymis except for small left epididymal cyst. Focal calcification along the anterior scrotal of right testes. Question left side appendix testes. Small right hydrocele and is loculated . Complex small hydrocele at the bottom of the left scrotum. Electronically signed by: Rafa Bobby MD 03/09/2025 01:12 PM [facility]
--- NOTE | ~2025-03-08 | US_ITS ---
EXAMINATION: US RETROPERITONEAL COMPLETE (RENAL) CLINICAL INFORMATION: R39.9.. COMPARISON: None available. TECHNIQUE: Real-time imaging of the kidneys and bladder. FINDINGS: RIGHT KIDNEY: 11 x 7 x 6 cm (SAG x AP x TRV). Normal echotexture. Renal cortical thickness is normal. There is a 7 cm exophytic anechoic lesion without septations or nodular components in the upper pole. No hydronephrosis. No solid lesion. LEFT KIDNEY: 12 x 5 x 4 cm (SAG x AP x TRV). Normal echotexture. Renal cortical thickness is normal. No hydronephrosis. There is a 4 mm hyperechoic structure in the midportion to lower pole. There is a 7 mm exophytic anechoic lesion in the lower pole without septations or nodular components. BLADDER: Fluid-filled. Bilateral ureteral jets are demonstrated. Prevoid bladder volume is 286 mL. Postvoid bladder volume is 116 mL. Prostate gland measures 4 x 4 x 5 cm and volume: 43 cc. There is protrusion of bone in the urinary bladder floor. US/US retroperitoneal comp IMPRESSION: 116 cc retained urine in a post void image. No hydronephrosis. Bilateral renal cysts. 4 mm nonobstructing nephrolithiasis, left kidney. Prostate gland volume: 43 cc. Electronically signed by: Flo Bob MD 03/09/2025 06:56 AM EST
--- OUTSIDE RECORDS SUMMARY | 2025-03-08 17:09 | XMS_ITS | Encounter Summary ---
Author Organization [facility] [place] [address] Care Team Providers Care Head Lineman Name Role Phone Josué King MD Primary Care Provider Reason for Visit * Reason Onset Date Comments Fitting for DME 01/21/2025 Encounter Details Date Type Department Care Team ([facility] Contact Info) Description 01/21/2025 Telephone Adult Medicine [facility] [address] [place], [place] [phone] Josué King MD [address] [place], [place] [phone] Social History Tobacco Use Types Packs/Day Years [...] as of this encounter Progress Notes * Baldemar Feldman MA - 03/04/2025 10:54 AM EST Office notes to Dr King for andria * Puja Chavez - 02/22/2025 10:44 AM EDT Trini calling on status of these notes being faxed over to her * Joy Boykin - 02/16/2025 3:07 PM EDT Please fax over last office notes signed by Dr King. Attn: Trini * Baldemar Feldman MA - 01/26/2025 3:51 PM EDT Signed orders faxed to [facility] [employer] [facility] [employer]. * Baldemar Feldman MA - 01/21/2025 3:46 PM EDT Orders rec'd from [employer]. To PCP for sig documented in this encounter Plan of Treatment Upcoming Encounters Date Type Department Care Team (Late st Contact Info) Description 04/05/2025 10:00 AM EST Office Visit Orthopedic Surgery - [place] [address] [phone] Stone Al, DPM [address] [phone] 04/16/2025 1:10 PM EST Office Visit [facility] Cardiology [facility] [address] [place] [phone] Leeann Griffin NP [address] [place] [phone] 05/05/2025 9:00 AM EST Ancillary Procedure [facility] Cardiology [facility] [address] [place] [phone] 06/14/2025 11:00 AM EST Office Visit Adult Medicine [facility] [address] [place] [phone] Josué King MD [address] [place] [phone] documented as of this encounter Visit Diagnoses Not on filedocumented in this encounter Additional Health Concerns Assessment Noted Time PHQ-9 Depression Total Score: 0 06/09/19 25 11:04 AM EST A fall risk assessment has been complete d for the patient 06/09/2024 10:57 AM EST documented as of this encounter Care Teams Head Lineman Relationship Specialty Start Date End Date Josué King MD [address] [place] [phone] PCP - General Internal Medicine 01/26/21 documented as of this encounter
--- OUTSIDE RECORDS SUMMARY | 2025-03-08 17:09 | XMS_ITS | Clinical Summary ---
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 90 tablet 025 Active gabapentin (NEURONTIN) 300 mg capsule TAKE 1 CAPSULE BY MOUTH EVERY 12 HOURS FOR NERVE PAIN 180 capsule 1 025 Active dulaglutide (TRULICITY) 0.75 mg/0.5 mL pen injector injectionIndica tions:Essential hypertension Inject 0.5 mL (0.75 mg total) under the skin 1 (one) time per week. 2 mL 6 025 Active tamsulosin (FLOMAX) 0.4 mg 24 hr capsule TAKE 1 CAPSULE(0.4 MG) BY MOUTH 1 TIME EACH DAY 30 MINUTES AFTER A MEAL AT THE SAME TIME EVERY DAY 90 capsule 1 Active omeprazole (PriLOSEC) [address] capsule TAKE 1 CAPSULE(20 MG) BY MOUTH 1 TIME EACH DAY 90 capsule 1 Active sulfamethoxazol e-trimethoprim (BACTRIM DS,SEPTRA DS) 800-160 mg per tablet Take 1 tablet by mouth 2 (two) times a day. Prescribed by urologist Active metFORMIN (GLUCOPHAGE) 500 mg tablet Take 1 tablet (500 mg total) by mouth 1 (one) time each day with breakfast. Active isosorbide mononitrate (IMDUR) 30 mg 24 hr tablet Take 3 tablets (90 mg total) by mouth 1 (one) time each day. Do not crush or chew. 90 each 3 025 2025 Active cetirizine (ZyrTEC) 10 mg tablet TAKE 1 TABLET BY MOUTH DAILY 90 tablet 1 Active simvastatin (ZOCOR) 40 mg tablet TAKE 1 TABLET BY MOUTH AT BEDTIME 90 tablet 1 Active diclofenac (VOLTAREN) 1 % topical gel APPLY TOPICALLY TO THE AFFECTED AREA TWICE DAILY NEEDED FOR PAIN 100 g 1 Active acetaminophen (TYLENOL 8 HOUR) 650 mg 8 hr tablet TAKE 1 TABLET(650 MG) BY MOUTH EVERY 8 HOURS NEEDED FOR HEADACHE OR PAIN 60 tablet Active carvediloL (COREG) 25 mg tablet TAKE 1 TABLET BY MOUTH TWICE DAILY 180 tablet 1 Active amLODIPine (NORVASC) 5 mg tablet TAKE 1 TABLET BY MOUTH EVERY DAY 90 tablet 1 Active cetirizine (ZyrTEC) 10 mg tablet TAKE 1 TABLET BY MOUTH DAILY 90 tablet 1 025 2024 Discontinued amLODIPine (NORVASC) 5 mg tablet TAKE 1 TABLET BY MOUTH DAILY 90 tablet 1 025 2024 Discontinued acetaminophen (TYLENOL 8 HOUR) 650 mg 8 hr tablet Take 1 tablet (650 mg total) by mouth every 8 (eight) hours if needed for headaches. for pain 60 tablet 2024 Discontinued simvastatin (ZOCOR) 40 mg tablet TAKE 1 TABLET BY MOUTH AT BEDTIME 90 tablet 1 025 2024 Discontinued diclofenac (VOLTAREN) 1 % topical gel APPLY TOPICALLY TO THE AFFECTED AREA TWICE DAILY NEEDED FOR PAIN 100 g 1 2024 Discontinued carvediloL (COREG) 25 mg tablet TAKE 1 TABLET BY MOUTH TWICE DAILY 180 tablet 1 2024 Discontinued metFORMIN (GLUCOPHAGE) 500 mg tablet Take 1 tablet (500 mg total) by mouth 1 (one) time each day with breakfast. 180 each 1 2024 Discontinued isosorbide mononitrate (IMDUR) 60 mg 24 hr tablet Take 1 tablet (60 mg total) by mouth 1 (one) time each day. Do not crush or chew. 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, 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) ([facility] V24, [facility] V28) 03/03/2024 Urinary incontinence, post-void dribbling 2020 Diabetic neuropathy ([facility] V24, [facility] V28) 0 12/24/2018 Assessment & Plan (06/09/2024 11:41 AM EST): Type 2 diabetes mellitus wit h cataract ([facility] V24, [facility] V28) 12/24/2018 Assessment & Plan (06/09/2024 11:41 AM EST): Tubular adenoma 12/24/2018 Overview (07/04/2023): 05/2016 CN, Repeat 10 yrs Cataract 12/24/2018 Overview (07/04/2023): 2016 Small bilateral Essential hypertension 04/11/2017 Overview (07/04/2023): Last Assessment & Plan: Patient's blood pressure is well-controlled today with a reading of 124/80. He will continue his current antihypertensive medication regimen with carvedilol, amlodipine as prescribed. Assessment & Plan (02/15/2025 10:28 AM EDT): Blood pressure adequate and well-controlled today. He will continue his current medication regimen. Will increase isosorbide mononitrate as outlined above. He will monitor his blood pressures at home and notify me of any changes. Assessment & Plan (06/16/2024 3:04 PM EST): Patient's blood pressure is well-controlled today with a reading 116/70. He will continue his current antihypertensive medication regimen as prescribed with amlodipine, carvedilol as prescribed. 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 08/07/2016 Assessment & Plan (06/09/2024 11:41 AM EST): JUNIE (obstructive sleep apnea) 02/28/2016 Overview (07/04/2023): [facility] Polysomnogram: Date 10/01/2018; Wt 190#; BMI 34; [...] Neurologic disorder associat ed with diabetes mellitus ([facility] V24, [facility] V28) 02/21/2016 GERD (gastroesophageal reflux disease) 6 Mild intermittent asthma without complication Foot drop 12/29/2014 Overview (07/04/2023): Left, r/t hip replacement in [place] Status post hip replacement 12/29/2014 Overview (07/04/2023): Left, 2006 in [place] CAD (coronary artery disease) 07/02/2014 Overview (07/04/2023): [...] they were to faint. Assessment & Plan (02/15/2025 10:28 AM EDT): The patient has history of coronary artery disease status post bypass in 2001 with known occlusions of the SVG to diagonal and SVG to PDA grafts. In November, episode of chest pain prompted ER visit. On today's visit, since November, he reports he continues to have rare episodes which are brief and mild in nature. He continues on medical therapy with isosorbide mononitrate, amlodipine, beta-wendi, statin and aspirin as prescribed. We discussed his symptoms in depth today. Recommend we update his cardiac testing with an echocardiogram and a nuclear stress test to rule out ischemia as a cause of his symptoms. This would be pharmacological. Will also have him increase isosorbide mononitrate from 60 mg orally daily to 90 mg orally daily and we discussed the reasoning for this. Will notify him of the results of his testing as soon as they become available to discuss next steps. Patient advised to seek emergency medical attention by calling 911 if they were to develop severe dyspnea, chest pain that did not resolve with rest or nitroglycerin, or if they were to faint. Orders: Transthoracic echocardiogram (TTE) complete with PRN contrast, bubble, strain, and 3D order panel; Future Nuclear stress test with myocardial perfusion; Future Assessment & Plan (06/16/2024 3:04 PM EST): [...] of simvastatin as prescribed. Assessment & Plan (02/15/2025 10:28 AM EDT): Last fasting lipid panel this year showed LDL at goal at 57. He will continue his current statin therapy. Assessment & Plan (06/16/2024 3:04 PM EST): [...] Problem Noted Date Diagnosed Date Resolved Date Chest pain 02/11/2025 02/15/2025 Palpitations 10/18/2020 06/16/2024 Overview (07/04/2023): Last Assessment & Plan: When patient was initially seen in 09/2020 he reported occasional palpitations. He did wear Holter monitor subsequently that did not show any underlying arrhythmias. Encounters Date Type Department Care Team Description 03/01/2025 10:10 AM EST Lab Draw Station - [address] [id number] Elevated prostate specific antigen (PSA); Unspecified symptoms and signs involving the genitourinary system; Testicular pain; Nocturia; Frequency of micturition 03/01/2025 Results Follow-Up [facility] [address] [facility] [address] [place] [address] Leeann Griffin NP 03/01/2025 Telephone [facility] [address] [place] [address] Leeann Griffin NP 02/26/2025 9:00 AM EDT Ancillary Procedure [facility] [address] [place] [phone] Coronary artery disease involving chehalis coronary artery of che[place]is heart without angina pectoris 02/24/2025 Results Follow-Up [address] [phone] Orville Wheatley NP 02/15/2025 9:40 AM EDT Office Visit [facility] [address] [place] [address] Leeann Griffin NP Coronary artery disease involving che[place]is coronary artery of [place] heart without angina pectoris (Primary Dx); Other hyperlipidemia; Essential hypertension 02/09/2025 10:15 AM EDT Office Visit [facility] Medicine [address] [phone] Orville Wheatley NP Type 2 diabetes mellitus with cataract (CMS/HCC V24, CMS/HCC V28) (Primary Dx); Essential hypertension; Other hyperlipidemia; Dysuria; Benign prostatic hyperplasia without lower urinary tract symptoms 01/21/2025 Telephone Adult Medicine [address] [phone] Josué King MD 01/20/2025 Telephone [facility] [address] [place] [address] Morro Juarez MD 01/07/2025 10:30 AM EDT Consult [facility] [address] [phone] Josué King MD Preop cardiovascular exam (Primary Dx); Coronary artery disease involving chehalis coronary artery of che[place]is heart without angina pectoris; Type 2 diabetes mellitus with cataract (CMS/HCC V24, [facility] V28); Essential hypertension; Other hyperlipidemia 01/05/2025 Telephone Orthopedic Surgery - [place] [address] [facility] [address] [place] [phone] Tamiko Zhang 12/23/2024 10:15 AM EDT Office Visit [address] [phone] Orville Wheatley NP Intermittent chest pain (Primary Dx); Coronary artery disease involving chehalis coronary artery of chehalis heart without angina pectoris; Acute cystitis with hematuria; Benign prostatic hyperplasia, unspecified whether lower urinary tract symptoms present; Type I (juvenile type) diabetes mellitus with neurological manifestations, 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 Emergency [address] [place] [phone] Elliott Terrell MD Chest pain, unspecified type (Primary Dx) Discharge Disposition: Home or Self Care 12/11/2024 10:40 AM EDT Office Visit [facility] - [facility] [address] [facility] [address] [place] [phone] Abby Garcia NP Chest discomfort (Primary Dx) 12/08/2024 10:00 AM EDT Office Visit [address] [phone] Orville Wheatley NP Intermittent chest pain (Primary Dx); Coronary artery disease involving chehalis coronary artery of chehalis heart without angina pectoris; Other hyperlipidemia; Essential hypertension; Type 2 diabetes mellitus with cataract ([facility] V24, [facility] V28) from Last 3 Months Immunizations Immunization Administration Dates Next Due Influenza Quadravalent, MDCK [...] GRAFT 2001 PROCEDURE: HISTORICAL CABG; COMMENT: in [place] HIP ARTHROPLASTY 2005 Left PROCEDURE: HISTORICAL HIP REPLACEMENT; COMMENT: in [place], sciatic nerve issues & foot drop following [...] hypertension 04/11/2017 DX:Essent ial hypertension Diabetic neuropathy ([facility] V24, [facility] V28) 12/24/2018 DX:Diabetic neuropathy (HCC) DM (diabetes mellitus), type 2 with neurological complications ([facility] V24, [facility] V28) 02/21/2016 DX:DM (diabetes mellitus), t ype 2 with neurological complications ([facility]) Cataract 12/24/2018 DX:Cataract; COM MENT: 2016 Small bilateral Foot drop 12/29/2014 DX:Foot drop; CO MMENT: Left, r/t hip replacement in [place] Status post hip replacement 12/29/2014 DX:S tatus post hip replacement; COMMENT: Left, 2005 in [place] Type 2 diabetes mellitus wit h cataract (CMS/HCC V24, CMS/HCC V28) 12/24/2018 DX:Type 2 diabetes mellitus with cataract (HCC) Tubular adenoma 12/24/2018 DX:Tubular adeno ma; COMMENT: 05/2016 CN, Repeat 10 yrs BPH (benign prostatic hyperplasia) 07/02/2014 DX:BPH (benign prostatic hyperplasia) CAD (coronary artery disease) 07/02/2014 DX :CAD (coronary artery disease); COMMENT: S/p CABG in 2001, f/u cardiology at [facility] 12/29/2014 DX:Edema Hyperlipidemia 07/02/2014 DX:Hyperlipidemi a Mild [...] Sign Reading Time Taken Comments Blood Pressure 107/71 02/26/2025 9:15 AM EDT Pulse 74 02/15/2025 9:32 AM EDT Temperature 36.1 C (97 F) 02/09/2025 10:16 AM EDT Respiratory Rate 16 01/07/2025 10:21 AM EDT Oxygen Saturation 96% 02/15/2025 9:32 AM EDT Inhaled Oxygen Concentration - - Weight 84.4 kg (186 lb) 02/26/2025 8:53 AM EDT Height 162.6 cm (5' 4 ) 02/26/2025 8:53 AM EDT Body Mass Index 31.93 02/26/2025 8:53 AM EDT Plan of Treatment Upcoming Encounters Date Type Department Care Team (Late st Contact Info) Description 04/05/2025 10:00 AM EST Office Visit Orthopedic Surgery - [place] [address] [facility] [address] [place] [address] Stone lA DPM [address] [facility] [address] [place] [address] 04/16/2025 1:10 PM EST Office Visit [facility] - [address] [place] [address] Leeann Griffin NP [address] [place] [address] [address] [place] [address] 05/05/2025 9:00 AM EST Ancillary Procedure [facility] [address] [place] [phone] 06/14/2025 11:00 AM EST Office Visit Adult Medicine [facility] [address] [place] [phone] Josué King MD [address] [place] [address] Health Maintenance Due Date Last Done Comments Zoster Vaccines (1 of 2) 07/21/2003 Colorectal Cancer Screening: Stool Based Tests (FOBT/FIT) 04/07/2022 Social Influencers of Health Screening 04/07/2022 Diabetes: Annual Retina Eye Exam 06/18/2024 06/18/2023 Falls Risk Assessment 06/09/2025 06/09/2024, 024 Diabetes: Blood Sugar Control Test (HGBA1C) 08/10/2025 02/09/2025, 09/07/2024, 05/29/2024, Additional history exists Diabetes: Annual Urine Albumin-Creatinine Ratio (uACR) 09/07/2025 09/07/2024, 07/01/2023 Diabetes: Annual GFR (Glomerular Filtration Rate) 12/11/2025 12/11/2024, 12/08/2024, 09/07/2024, Additional history exists Hypertension/CHF/CAD Annual BMP Blood Test 12/11/2025 12/11/2024, 12/08/2024, 09/07/2024, Additional history exists Diabetes: Annual Foot Exam 02/09/202602/09, 02/09/2025, 02/09/2025, Additional history exists DTaP,Tdap,and Td Vaccines (2 - Td or Tdap) 05/04/2026 05/04/2016 Cholesterol Screening (Lipid Panel) 05/29/2029 05/29/2024, 11/19/2022 Hepatitis C Screening Completed 05/04/2016, 017 Colorectal Cancer Screening: Colonoscopy Discontinued 05/16/2016 Pneumococcal Vaccine: 50+ Years Completed 09/11/2018, 02/28/2016 Abdominal Aortic Aneurysm (AAA) Screen Completed 04/13/2019, 04/13/2019 COVID-19 Vaccine Discontinued 03/08/2021, 01/2021, 08/08/2020 Influenza Vaccine Discontinued 01/09/2024, , 01/29/2018, Additional history exists Depression Screening Completed 06/09/2024, 06/06/19 Medicare Annual Wellness Visit Discontinued 06/09/2024 HIB [...] age to complete this topic RSV Immunization Adult Patients Discontinued RSV Immunization Patients Under 20 months Aged Out No longer eligible based on patient's age to complete this topic Varicella Vaccines Aged Out No longer eligible based on patient's age to complete this topic Procedures Procedure Name Priority Date/Time Associated Diagnosis Comments PSA TOTAL, FREE AND COMPLEXED, DIAGNOSTIC Routine 03/01/2025 10:13 AM EST Elevated prostate specific antigen (PSA) Unspecified symptoms and signs involving the genitourinary system Testicular pain Nocturia Frequency of micturition NM LEXISCAN STRESS TEST W/ MYOCARDIAL PERFUSION Routine 02/26/2025 11:36 AM EDT Coronary artery disease involving chehalis coronary artery of chehalis heart without angina pectoris NARVAZE URINE CULTURE TUBE Routine 02/09/2025 11:16 AM EDT Type 2 diabetes mellitus with cataract (CMS/HCC V24, CMS/HCC V28) Essential hypertension Other hyperlipidemia Benign prostatic hyperplasia without lower urinary tract symptoms Dysuria URINALYSIS WITH REFLEX MICROSCOPIC AND CULTURE Routine 02/09/2025 11:16 AM EDT Type 2 diabetes mellitus with cataract (CMS/HCC V24, CMS/HCC V28) Essential hypertension Other hyperlipidemia Benign prostatic hyperplasia without lower urinary tract symptoms Dysuria HEMOGLOBIN A1C Routine 02/09/2025 11:16 AM EDT Essential hypertension URINALYSIS WITH REFLEX MICROSCOPIC AND CULTURE Routine 02/09/2025 11:16 AM EDT Type 2 diabetes mellitus with cataract (CMS/HCC V24, CMS/HCC V28) Essential hypertension Other hyperlipidemia Benign prostatic hyperplasia without lower urinary tract symptoms Dysuria ECG ANNOTATED 12/14/2024 ECG 12-LEAD Routine 12/11/2024 [...] EDT Type 2 diabetes mellitus with cataract ([facility]/HCC V24, CMS/HCC V28) Other hyperlipidemia Essential hypertension [...] diabetes mellitus with other diabetic neurological complication (CMS/HCC V24, CMS/HCC V28) Encounter for screening for cardiovascular disorders COLONOSCOPY Routine 05/16/2016 HEPATITIS C SCREENING Routine 05/04/2016 from Last 3 Months or Most Recently Relevant to Health Maintenance Results * (ABNORMAL) PSA total, free and complexed (03/01/2025 10:13 AM EST) PSA 4.43(H) 0.00 - 4.00 ng/mL LAB CHEMISTRY METHOD 03/01/2025 3:50 PM EST [facility] PSA, Complexed 2.74 0.00 - 3.00 ng/mL LAB CHEMISTRY METHOD 03/01/2025 3:50 PM EST [facility] PSA, Free 1.7 ng/mL LAB CHEMISTRY METHOD 03/01/2025 3:50 PM EST [facility] PSA, Free Pct 38.4 >25.0 % LAB CHEMISTRY METHOD 03/01/2025 3:50 PM EST [facility] Blood Venous blood specimen / Unknown Venipuncture / Unknown 03/01/2025 10:13 AM EST 03/01/2025 10:16 AM EST [facility] - 03/01/2025 3:50 PM EST Free PSA is a calculated value. The diagnostic usefulness of % free PSA has not been established in patients with Total PSA below 2.6 or above 10 ng/mL. This test was performed using the Centaur Chemiluminescent method. PSA values obtained with other methods cannot be used interchangeably. Mare Livingston [facility] LAB BLOOD ORDERABLES Final Result [facility] [address] [place] [address], [place] [phone] * NM LEXISCAN STRESS TEST W/ MYOCARDIAL PERFUSION (02/26/2025 11:36 AM EDT) Exercise/injec tion duration (min) 0 CV PACS STRESS Exercise/injec tion duration (sec) 34 CV PACS STRESS Peak SBP 110 mmHg CV PACS STRESS Peak DBP 75 mmHg CV PACS STRESS Peak HR 90 bpm CV PACS STRESS Baseline HR 85 bpm CV PACS STRESS Baseline SBP 109 mmHg CV PACS STRESS Baseline DBP 71 mmHg CV PACS STRESS Estimated workload 1.0 METS CV PACS STRESS Percent HR 60 % CV PACS STRESS Rate Pressure Product 9,900.0 mmHg*bpm CV PACS STRESS Target HR 127 bpm CV PACS STRESS TID 1.06 CV PACS STRESS Nuc Stress EF 60 % CV PACS STRESS Nuc Rest EF 59 % CV PACS STRESS BSA 1.95 m2 CV PACS STRESS Anatomical Region Laterality Modality Nuclear Medicine 02/26/2025 9:58 AM EDT 02/26/2025 11:14 AM EDT Narrative 02/26/2025 6:56 PM EDT Dobutamine and Vasodilator (regadenoson) stress test was performed. Patient reported no symptoms during the stress test. Normal blood pressure response. The study is positive for infarction and positive for ischemia. There is a small inferior ischemic defect and a small fixed apical defect consistent with infarct LV perfusion is abnormal. There is a small inferior ischemic defect and a small fixed apical defect Normal left ventricular function post-stress. Stress ejection fraction is 60%. Stress Findings A pharmacological stress test was performed using dobutamine. A pharmacological stress test was performed using regadenoson, 0.4 mg IV over 10-15 seconds, followed by radiopharmacological injection 10 seconds post infusion. Total stress time was 0 min and 34 sec. The patient reached the end of the protocol. Blood pressure demonstrated a normal response. Heart rate demonstrated a normal response. The patient reported no symptoms during the stress test. ECG 69 year old male with reports of intermittent chest discomfort. PMH includes CAD s/p previous CABG, HTN, HLD and former smoking. The ECG shows normal sinus rhythm. There were no arrhythmias during stress. There is non-specific ST abnormalities during stress. There were no arrhythmias during recovery. Nuclear Study Quality Study technique: MPI, SPECT, multi, rest and stress, 1 day and gated. Overall image quality is good. CT attenuation correction was utilized. No radiopharmaceutical dose was extravasated. Perfusion Defect Conclusion There is no evidence of transient ischemic dilation (TID). Stress Function Comments Left ventricular systolic function post-stress is normal. Stress ejection fraction is 60%. Rest Function Comments Left ventricular function at rest was normal. Resting ejection fraction was 59%. Stress Combined Conclusion The study is positive for infarction and positive for ischemia. Overall low cardiovascular risk. There is a small inferior ischemic defect and a small fixed apical infarct CT Findings Mild diffuse coronary artery calcification Perfusion Comments LV perfusion is abnormal. There is a small inferior ischemic defect and a small fixed apical defect Leeann Griffin NP CV STRESS PROCEDURES Final Result * (ABNORMAL) Urinalysis with reflex microscopic and culture (02/09/2025 11:16 AM EDT) Specific [place] Urine 1.030 1.003 - 1.030 LAB URINALYSIS - AUTOMATED METHOD 02/09/2025 2:24 PM [facility] pH, Urine 5.0 5.0 - 8.0 pH LAB URINALYSIS - AUTOMATED METHOD 02/09/2025 2:24 PM [facility] Leukocytes, Urine Negative Negative LAB URINALYSIS - AUTOMATED METHOD 02/09/2025 2:24 PM [facility] Nitrite, Urine Negative Negative LAB URINALYSIS - AUTOMATED METHOD 02/09/2025 2:24 PM [facility] Protein, Urine Negative <=Trace mg/dL LAB URINALYSIS - AUTOMATED METHOD 02/09/2025 2:24 PM [facility] Glucose, Urine 500(A) Negative mg/dL LAB URINALYSIS - AUTOMATED METHOD 02/09/2025 2:24 PM [facility] Ketones, Urine Trace(A) Negative mg/dL LAB URINALYSIS - AUTOMATED METHOD 02/09/2025 2:24 PM EDT [facility] Urobilinogen, Urine 0.2 0.2 - 1.0 mg/dL LAB URINALYSIS - AUTOMATED METHOD 02/09/2025 2:24 PM EDT [facility] Bilirubin, Urine Negative Negative LAB URINALYSIS - AUTOMATED METHOD 02/09/2025 2:24 PM EDT [facility] Blood, Urine Negative Negative LAB URINALYSIS - AUTOMATED METHOD 02/09/2025 2:24 PM EDT [facility] Urine Urine specimen obtained by clean catch procedure / Unknown Non-blood Collection / Unknown 02/09/2025 11:16 AM EDT 02/09/2025 11:16 AM EDT Orville Wheatley HOME ECONOMICS TEACHER LAB URINE ORDERABLES Final R esult Performing Organization Address City/[facility]/ZIP Co de Phone Number [facility] [address] [place] [address], [place] [phone] * Narvaez urine culture tube (02/09/2025 11:16 AM EDT) Pathologist [facility] Extra Tube Hold for add-ons. 02/09/2025 3:01 PM EDT [facility] Comment:Auto resulted. Urine Urine specimen obtained by clean catch procedure / Unknown Non-blood Collection / Unknown 02/09/2025 11:16 AM EDT 02/09/2025 11:16 AM EDT Orville Wheatley HOME ECONOMICS TEACHER LAB URINE ORDERABLES Final R esult [facility] [address] [place] [address], [place] [phone] * Hemoglobin A1c (02/09/2025 11:16 AM EDT) Hemoglobin A1C 6.2 <6.5 % LAB CHEMISTRY METHOD 02/09/2025 9:59 PM EDT [facility] Mean Bld Glu Estim. 131 mg/dL LAB CHEMISTRY METHOD 02/09/2025 9:59 PM EDT [facility] Blood Venous blood specimen / Unknown Venipuncture / Unknown 02/09/2025 11:16 AM EDT 02/09/2025 11:16 AM EDT us Orville Wheatley HOME ECONOMICS TEACHER LAB BLOOD ORDERABLES Final R esult [facility] [address] [place] [address], * ECG-Annotated (12/14/2024) us Provider Eileen WALTERS ECG ORDERABLES Final Result * ECG 12 lead (12/11/2024 2:12 PM EDT) Only the most recent of4 resultswithin the time period is included. [facility] Ventricular Rate ECG 56 BPM GEMUSE Atrial Rate 56 BPM GEMUSE P-R Interval 150 ms GEMUSE QRS Duration 94 ms GEMUSE Q-T Interval 444 ms GEMUSE QTc 428 ms GEMUSE P Wave Ken[place] 53 degrees GEMUSE R [place] 29 degrees GEMUSE T [place] 47 degrees GEMUSE ECG Interpretation Sinus bradycardia Otherwise normal ECG When compared with ECG of 11-DEC-2024 11:10, No significant change was found Confirmed by MD ARIEL, BRANDAN ([id number]) on 12/11/2024 10:51:38 PM GEMUSE 12/11/2024 2:12 PM EDT 12/11/2024 10:51 PM EDT us Elliott Terrell MD ECG ORDERABLES Final Result GEMUSE * Troponin I high sensitivity (12/11/2024 2:04 PM EDT) Only the most recent of2 resultswithin the time period is included. [facility] High Sensitivity Troponin I 5 <=79 ng/L LAB CHEMISTRY METHOD 12/11/2024 3:10 PM EDT [facility] Blood Venous blood specimen / Unknown Venipuncture / Unknown 12/11/2024 2:04 PM EDT 12/11/2024 2:35 PM EDT Narrative [facility] - 12/11/2024 3:10 PM EDT High levels of biotin in samples may falsely decrease hsTroponin values. Use caution when interpreting hsTroponin results in patients taking biotin who exhibit renal impairment (eGFR <60) or in patients taking more than 20 mg/day of biotin. us Magdi Koehler MD LAB BLOOD ORDERABLES Final Resu lt [facility] [address] [place] [address], * (ABNORMAL) CBC auto differential (12/11/2024 12:44 PM EDT) [facility] WBC 6.7 4.8 - 10.8 K/mcL LAB HEMETOLOGY METHOD 12/11/2024 1:43 PM EDT [facility] RBC 5.30 4.50 - 5.50 M/mcL LAB HEMETOLOGY METHOD 12/11/2024 1:43 PM EDT [facility] Hemoglobin 14.1 13.5 - 17.5 g/dL LAB HEMETOLOGY METHOD 12/11/2024 1:43 PM EDT [facility] Hematocrit 43.0 42.0 - 54.0 % LAB HEMETOLOGY METHOD 12/11/2024 1:43 PM EDT [facility] MCV 81.1 79.0 - 98.0 FL LAB HEMETOLOGY METHOD 12/11/2024 1:43 PM EDT [facility] MCH 26.6(L) 27.0 - 32.0 pcg LAB HEMETOLOGY METHOD 12/11[facility]2024 [facility] MCHC 32.8 32.0 - 37.0 g/dL LAB HEMETOLOGY METHOD 12/11/2024 1:43 [facility] RDW 14.2 11.0 - 15.0 % LAB HEMETOLOGY METHOD 12/11/2024 1:43 [facility] Platelets 236 130 - 400 K/mcL LAB HEMETOLOGY METHOD 12/11/2024 1:43 PM [facility] MPV 10.6 7.0 - 11.0 FL LAB HEMETOLOGY METHOD 12/11/2024 1:43 PM [facility] NRBC 0.0 <1.0 % LAB HEMETOLOGY METHOD 12/11/2024 1:[facility] NRBC Absolute 0.00 <0.10 K/mcL LAB HEMETOLOGY METHOD 12/11/2024 1:43 PM [facility] Neutrophils Relative 49.7 % LAB HEMETOLOGY METHOD 12/11/2024 1:43 PM [facility] Lymphocytes Relative 36.3 % LAB HEMETOLOGY METHOD 12/11/2024 1:43 PM [facility] Monocytes Relative 9.1 % LAB HEMETOLOGY METHOD 12/11/2024 1:43 PM [facility] Eosinophils Relative 3.6 % LAB HEMETOLOGY METHOD 12/11/2024 1:[facility] Basophils Relative 0.9 % LAB HEMETOLOGY METHOD 12/11/2024 1:43 PM [facility] Immature Granulocytes Relative 0.4 % LAB HEMETOLOGY METHOD 12/11/2024 1:43 PM [facility] Neutrophils Absolute 3.35 1.50 - 7.00 K/mcL LAB HEMETOLOGY METHOD 12/11/2024 1:43 PM EDT [facility] Lymphocytes Absolute 2.44 1.00 - 5.00 K/mcL LAB HEMETOLOGY METHOD 12/11/2024 1:43 PM EDT [facility] Monocytes Absolute 0.61 0.20 - 1.00 K/mcL LAB HEMETOLOGY METHOD 12/11/2024 1:43 PM EDT [facility] Eosinophils Absolute 0.24 0.00 - 0.50 K/[facility] LAB HEMETOLOGY METHOD 12/11/2024 1:43 PM EDT [facility] Basophils Absolute 0.06 0.00 - 0.20 K/mcL LAB HEMETOLOGY METHOD 12/11/2024 1:43 PM EDT [facility] Immature Granulocytes Absolute 0.03 0.00 - 0.03 K/[facility] LAB HEMETOLOGY METHOD 12/11/2024 1:43 PM EDT [facility] Blood Venous blood specimen / Unknown Venipuncture / Unknown 12/11/2024 12:44 PM EDT 12/11/2024 1:33 PM EDT Magdi Koehler MD LAB BLOOD ORDERABLES Final Resu lt [facility] [address] [place] [address], * B-type natriuretic peptide (12/11/2024 12:44 PM EDT) BNP 22 <=100 pcg/mL LAB CHEMISTRY METHOD 12/11/2024 2:30 PM EDT [facility] Blood Venous blood specimen / Unknown Venipuncture / Unknown 12/11/2024 12:44 PM EDT 12/11/2024 1:33 PM EDT Magdi Koehler MD LAB BLOOD ORDERABLES Final Resu lt Performing Organization Address [facility]/ZIP Co de Phone Number [facility] [address] [place] [address], [place] [phone] * Magnesium (12/11/2024 12:44 PM EDT) Pathologist [facility] Magnesium 2.1 1.9 - 2.6 mg/dL LAB CHEMISTRY METHOD 12/11/2024 2:04 PM EDT [facility] Blood Venous blood specimen / Unknown Venipuncture / Unknown 12/11/2024 12:44 PM EDT 12/11/2024 1:33 PM EDT Magdi Koehler MD LAB BLOOD ORDERABLES Final Resu lt Performing Organization Address [facility]/ZIP Co de Phone Number [facility] [address] [place] [address], [place] [phone] * Lipase (12/11/2024 12:44 PM EDT) [facility] Lipase 28 13 - 75 unit/L LAB CHEMISTRY METHOD 12/11/2024 2:04 PM EDT [facility] Blood Venous blood specimen / Unknown Venipuncture / Unknown 12/11/2024 12:44 PM EDT 12/11/2024 1:33 PM EDT Magdi Koehler MD LAB BLOOD ORDERABLES Final Resu lt Performing Organization Address City/[facility]/ZIP Co de Phone Number [facility] [address] [place] [address], [place] [phone] * Comprehensive metabolic panel (12/11/2024 12:44 PM EDT) Pathologist [facility] Sodium 138 133 - 145 mmol/L LAB CHEMISTRY METHOD 12/11/2024 2:14 PM EDT [facility] Potassium 4.4 3.5 - 5.5 mmol/L LAB CHEMISTRY METHOD 12/11/2024 2:14 PM [facility] Chloride 105 96 - 110 mmol/L LAB CHEMISTRY METHOD 12/11/2024 2:14 PM [facility] CO2 28 21 - 32 mmol/L LAB CHEMISTRY METHOD 12/11/2024 2:14 PM [facility] Anion Gap 5 3 - 11 LAB CHEMISTRY METHOD 12/11/2024 2:14 PM [facility] Glucose 87 70 - 100 mg/dL LAB CHEMISTRY METHOD 12/11/2024 2:14 PM [facility] BUN 19 5 - 25 mg/dL LAB CHEMISTRY METHOD 12/11/2024 2:14 PM [facility] Creatinine 1.09 0.70 - 1.30 mg/dL LAB CHEMISTRY METHOD 12/11/2024 2:14 PM [facility] eGFR 73 >=60 mL/min/1. 73m2 LAB CHEMISTRY METHOD 12/11/2024 2:14 PM [facility] Comment:Calculation based on the Chronic Kidney Disease Epidemiology Collaboration (CKD-EPI) equation refit without adjustment for race. BUN/Creatinine Ratio 17.4 LAB CHEMISTRY METHOD 12/11/2024 2:14 PM [facility] Calcium 10.2 8.5 - 10.5 mg/dL LAB CHEMISTRY METHOD 12/11/2024 2:14 PM [facility] AST (SGOT) 13 10 - 42 unit/L LAB CHEMISTRY METHOD 12/11/2024 2:14 PM [facility] ALT (SGPT) 17 10 - 60 unit/L LAB CHEMISTRY METHOD 12/11/2024 2:14 PM [facility] Alkaline Phosphatase 85 42 - 121 unit/L LAB CHEMISTRY METHOD 12/11/2024 2:14 PM [facility] Total Protein 7.5 6.0 - 8.0 g/dL LAB CHEMISTRY METHOD 12/11/2024 2:14 PM EDT [facility] Albumin 4.0 3.2 - 5.0 g/dL LAB CHEMISTRY METHOD 12/11/2024 2:14 PM EDT [facility] Total Bilirubin 0.4 0.0 - 1.4 mg/dL LAB CHEMISTRY METHOD 12/11/2024 2:14 PM EDT [facility] Blood Venous blood specimen / Unknown Venipuncture / Unknown 12/11/2024 12:44 PM EDT 12/11/2024 1:33 PM EDT Magdi Koehler MD LAB BLOOD ORDERABLES Final Resu lt Performing Organization Address [facility] Co de Phone Number [facility] [address] [place] [address], * (ABNORMAL) Prostate specific antigen screen (12/08/2024 11:43 AM EDT) PSA 4.31(H) 0.00 - 4.00 ng/mL LAB CHEMISTRY METHOD 12/08/2024 5:12 PM EDT [facility] Blood Venous blood specimen / Unknown Venipuncture / Unknown 12/08/2024 11:43 AM EDT 12/08/2024 11:44 AM EDT Narrative [facility] - 12/08/2024 5:12 PM EDT The Siemens Advia Centaur Chemiluminescent Immunoassay is used. Results obtained with different assay methods or kits cannot be used interchangeably. Results cannot be interpreted as absolute evidence of the presence or absence of malignant disease. Orville Wheatley NP LAB BLOOD ORDERABLES Final R esult Performing Organization Address [facility]/ZIP Co de Phone Number [facility] [address] [place] [address], * (ABNORMAL) Basic metabolic panel (12/08/2024 11:43 AM EDT) Sodium 139 133 - 145 mmol/L LAB CHEMISTRY METHOD 12/08/2024 4:32 PM [facility] Potassium 4.3 3.5 - 5.5 mmol/L LAB CHEMISTRY METHOD 12/08/2024 4:32 PM [facility] Chloride 108 96 - 110 mmol/L LAB CHEMISTRY METHOD 12/08/2024 4:32 PM [facility] CO2 27 21 - 32 mmol/L LAB CHEMISTRY METHOD 12/08/2024 4:32 PM [facility] Anion Gap 4 3 - 11 LAB CHEMISTRY METHOD 12/08/2024 4:32 PM [facility] Glucose 121(H) 70 - 100 mg/dL LAB CHEMISTRY METHOD 12/08/2024 4:32 PM [facility] BUN 23 5 - 25 mg/dL LAB CHEMISTRY METHOD 12/08/2024 4:32 PM [facility] Creatinine 1.11 0.70 - 1.30 mg/dL LAB CHEMISTRY METHOD 12/08/2024 4:32 PM [facility] eGFR 71 >=60 mL/min/1. 73m2 LAB CHEMISTRY METHOD 12/08/2024 4:32 PM [facility] Comment:Calculation based on the Chronic Kidney Disease Epidemiology Collaboration (CKD-EPI) equation refit without adjustment for race. BUN/Creatinine Ratio 20.7 LAB CHEMISTRY METHOD 12/08/2024 4:32 PM [facility] Calcium 10.1 8.5 - 10.5 mg/dL LAB CHEMISTRY METHOD 12/08/2024 4:32 PM [facility] Blood Venous blood specimen / Unknown Venipuncture / Unknown 12/08/2024 11:43 AM EDT 12/08/2024 11:44 AM EDT Orville Wheatley HOME ECONOMICS TEACHER LAB BLOOD ORDERABLES Final R esult Performing Organization Address City/[facility]/ZIP Co de Phone Number [facility] [address] [place] [address], [place] [phone] * Microalbumin creatinine urine ratio (09/07/2024 11:11 AM EDT) Creatinine, Urine 106.0 mg/dL LAB CHEMISTRY METHOD 09/07/2024 2:16 PM EDT [facility] Microalb, Ur 7.2 0.0 - 29.0 mg/L LAB CHEMISTRY METHOD 09/07/2024 2:16 PM EDT [facility] Microalb/Creat Ratio 7 <30 mg/g creat LAB CHEMISTRY METHOD 09/07/2024 2:16 PM EDT [facility] Urine Urine specimen obtained by clean catch procedure / Unknown Non-blood Collection / Unknown 09/07/2024 11:11 AM EDT 09/07/2024 11:11 AM EDT Orville Wheatley HOME ECONOMICS TEACHER LAB URINE ORDERABLES Final R esult Performing Organization Address City/[facility]/ZIP Co de Phone Number [facility] [address] [place] [address], [place] [phone] * Lipid panel with reflex to direct LDL (05/29/2024 9:39 AM EST) Cholesterol 136 0 - 200 mg/dL LAB CHEMISTRY METHOD 05/29/2024 2:17 PM EST [facility] Triglycerides 85 0 - 150 mg/dL LAB CHEMISTRY METHOD 05/29/2024 2:17 PM EST [facility] HDL 62 >=40 mg/dL LAB CHEMISTRY METHOD 05/29/2024 2:17 PM EST [facility] LDL Calculated 57 0 - 100 mg/dL LAB CHEMISTRY METHOD 05/29/2024 2:17 PM EST [facility] VLDL Cholesterol Royce 17 mg/dL LAB CHEMISTRY METHOD 05/29/2024 2:17 PM EST [facility] Non HDL Chol. (LDL+VLDL) 74 <145 mg/dL LAB CHEMISTRY METHOD 05/29/2024 2:17 PM EST [facility] Chol/HDL Ratio 2.2 0.0 - 4.4 LAB CHEMISTRY METHOD 05/29/2024 2:17 PM EST [facility] Blood Venous blood specimen / Unknown Venipuncture / Unknown 05/29/2024 9:39 AM EST 05/29/2024 9:39 AM EST Orville Wheatley NP LAB BLOOD ORDERABLES Final R esult [facility] [address] [place] [address], * Falls Risk Assessment (07/09/2023) [facility] Falls Risk Assessment Abstracted [facility] Provider MD HEALTH MAINTENANCE Final Result * Diabetes Foot Exam (07/09/2023) [facility] Diabetes: Annual Foot Exam Abstracted [facility] Provider HEALTH MAINTENANCE Final Result * Diabetes Eye Exam (06/18/2023) [facility] Diabetes: Annual Retina Eye Exam Abstracted [facility] Provider HEALTH MAINTENANCE Final Result * Depression Screening (06/06/2023) Pathologist [facility] Depression Screening Abstracted [facility] Provider HEALTH MAINTENANCE Final Result * [...] of an abdominal aortic aneurysm. [facility]ELLE[facility] US PROCEDURES Final Resul t * Colonoscopy (05/16/2016) Colonoscopy No interpretation , Abstracted Anatomical Region Laterality Modality Other Historical Provider HEALTH MAINTENANCE Final Result * Hepatitis C Screening (05/04/2016) Hepatitis C Screening Abstracted Historical Provider HEALTH MAINTENANCE Final Result from Last 3 Months or Most Recently Relevant to Health Maintenance Insurance [facility] Member Subscriber Plan / Payer (Ef fective 2019-Present) Name:Mark BEY Relation to Subscriber:Self Name:Mark Ford Payer ID:[id number] Group ID:[id number] Type:Not on file Address: [address] [facility] [place] [id number] Care Teams Window Machine Operator Relationship Specialty Start Date End Date Josué King MD [address] [place] [address] PCP - General Internal Medicine 01/26/21
--- OUTSIDE RECORDS SUMMARY | 2025-03-08 17:09 | XMS_ITS | Encounter Summary ---
Author Organization [facility] Address [address] [place] [address] Care Team Providers Care Crossing Guard Name Role Phone Josué King MD Primary Care Provider [phone] Encounter Details Date Type Department Care Team (Late Contact Info) Description 03/01/2025 Results Follow-Up [facility] [address] [place] [address] Leeann Griffin NP [address] [place] [address] [address] [place] [phone] Social History Tobacco Use Types Packs/Day Years [...] on file documented as of this encounter Plan of Treatment Upcoming Encounters Date Type Department Care Team (Late Contact Info) Description 04/05/2025 10:00 AM EST Office Visit Orthopedic Surgery - [place] [address] [address] Stone Al, DPM [address] [address] 04/16/2025 1:10 PM EST Office Visit [facility] [address] [place] [address] Leeann Griffin NP [address] [place] [address] [address] [place] [address] 05/05/2025 9:00 AM EST Ancillary Procedure [facility] [address] [place] [phone] 06/14/2025 11:00 AM EST Office Visit Adult Medicine [facility] [place] [address] [place] [address] Josué King MD [address] [place] [phone] documented as of this encounter Visit Diagnoses Not on filedocumented in this encounter Additional Health Concerns Assessment Noted Time PHQ-9 Depression Total Score: 0 06/09/19 11:04 AM EST A fall risk assessment has been complete d for the patient 06/09/2024 10:57 AM EST documented as of this encounter Care Teams Crossing Guard Relationship Specialty Start Date End Date Josué King MD [address] [place] [phone] PCP - General Internal Medicine 01/26/21 documented as of this encounter
--- OUTSIDE RECORDS SUMMARY | 2025-03-08 17:09 | XMS_ITS | Clinical Summary ---
Author Organization [facility] Address [address] [place] [address] Care Team Providers Care Asphalt Paving Supervisor Name Role Phone Unavailable Primary Care Provider Unavailabl e Source Comments PLEASE NOTE, if this patient is a minor, it may be UNLAWFUL to discuss sensitive information that is contained in these records (such as FAMILY PLANNING, MENTAL HEALTH or SUBSTANCE ABUSE) with the minor patient's parent or other person without the patient's specific authorization.[facility] Medications No known medications Active Problems Problem Noted Date Diagnosed Date Hypertension 05/21/2024 Coronary heart disease 05/21/2024 Diabetes 05/21/2024 Immunizations Immunization Administration Dates Next Due Moderna COVID-19 Vaccine, re d cap blue label, 12+ Primary Series 09/05/2020,08/08/2020 Social History Tobacco Use Types Packs/Day Years Used Date Smoking Tobacco: Never Assessed Social Connections Answer Date Recorded Connectedness 0 01/31/2024 Financial Resource Strain Answer Date R ecorded Financial Resource Strain 0 2023 Stress Answer Date Recorded Stress 0 01/31/2024 Physical Activity Answer Date Recorded Physical Activity 0 01/31/2024 Food Insecurity Answer Date Recorded Food 0 01/31/2024 Transportation Needs Answer Date Record ed Transportation 0 01/31/2024 Housing Stability Answer Date Recorded Housing 0 01/31/2024 Safety and Environment Answer Date Jamal rded Safety 0 01/31/2024 Utilities Answer Date Recorded Utilities 0 01/31/2024 Employment Answer Date Recorded Stress 0 01/31/2024 Sex and Gender Information Value Date Recorded Sex Assigned at Not on file Legal Sex Male 11:24 AM PDT Gender Identity Not on file Sexual Orientation Not on file Last Filed Vital Signs Vital Sign Reading Time Taken Comments Blood Pressure 157/89 07/30/2024 10:28 AM EDT Pulse 68 07/30/2024 10:28 AM EDT Temperature - - Respiratory Rate - - Oxygen Saturation - - Inhaled Oxygen Concentration - - Weight - - Height - - Body Mass Index - - Plan of Treatment Health Maintenance Due Date Last Done Comments Dental Perio Charting 1953 Dental Prophy 1953 Diabetes Foot Exam 1953 Hepatitis C Screening 1953 Tobacco Screening 1953 Urine Albumin Creatinine Rat io Screening 1953 Retinopathy Screening 1966 Medicare Annual Wellness Visit 07/21/1971 CT Colonography 1998 Colonoscopy 1998 Colorectal Cancer Screening 1998 FIT/gFOBT 1998 Fecal DNA 1998 Flexible Sigmoidoscopy 1998 Imm-Zoster, Recombinant (1 of 2) 07/21/2003 Abdominal Aortic Aneurysm Screening 2018 Falls Prevention 2018 Alcohol and Drug Screen 04/29/2024 Depression Annual Screen 04/29/2024 Hemoglobin A1c 11/26/2024 05/29/2024, 05/01, 10/09/2023, Additional history exists [id number] (3 - season) 2024 021, 08/08/2020 Imm-Influenza (#1) 2024 01/09/2024, 0 01/26/2021, 01/29/2018, Additional history exists Dental BW 05/23/2025 05/21/2024 Dental Examination 05/23/2025 05/21/2024 Lipid Screening 05/29/2025 05/29/2024, 11/19/2022 Serum Creatinine 05/29/2025 05/29/2024 Imm-DTaP/Tdap/Td (2 - Td or Tdap) 05/04/2026 017 Dental FMX/Pano 05/23/2029 05/21/2024 Imm-Pneumococcal 50+ Completed 09/11/2018, 02/28/20 16 Procedures Procedure Name Priority Date/Time Associated Diagnosis Comments INTRAORAL - COMP SERIES OF RADIOGRAPHIC IMAGES Routine 05/21/2024 10:20 AM EST Fracture of crown, enamel, and dentin of tooth without pulp exposure COMP ORAL EVALUATION - NEW/ESTABLISHED PATIENT Routine 05/21/2024 10:20 AM EST Fracture of crown, enamel, and dentin of tooth without pulp exposure Encounter for dental examination from Last 3 Months or Most Recently Relevant to Health Maintenance Insurance [facility]
== END 2025-03-08 14:56 | disposition home or self-care (01) ==
LOC: HO.US 14:55
PROVIDERS: PCP Internal Medicine; Visit Provider Nurse Practitioner Family
DX: N50.819 Testicular pain, unspecified (principal); R35.1 Nocturia; R35.0 Frequency of micturition; R97.20 Elevated prostate specific antigen [PSA]
CPT/HCPCS: 76770; 76870

== ENCOUNTER → 2025-03-08 14:57 | Outpatient (BNV) | payer OTHER, SELFPAY | PROVIDERS: PCP Internal Medicine; Visit Provider Radiology Diagnostic Radiology | DX: N39.9 Disorder of urinary system, unspecified (principal); N50.811 Right testicular pain | CPT/HCPCS: 76770; 76870 ==

== ENCOUNTER 2025-03-15 13:29 | Outpatient (AMB) | payer MEDICARE, SELFPAY ==
--- NOTE | 2025-03-15 13:39 | A.OFFVIS_ITS ---
Intake Visit Reasons: Follow up/labs/US Intake Note: Patient Is Present for Labs/US/PVR Follow up Urology Med: Tamsulosin Antibiotic Allergy: None Blood Thinner: None PVR: 23ml Die Repairer Forging Required: Yes Die Repairer Forging Services: Die Repairer Forging Present Die Repairer Forging Name: lisette [email or web address] Accompanied by: Family/Other Allergies No Known Allergies Allergy (Verified 03/15/25 21:47) Medication List - Last Reconciled 03/15/25 by KENNY HallP- amlodipine 5 mg PO DAILY carvedilol 25 mg PO BID cetirizine 10 mg PO DAILY doxycycline hyclate 100 mg PO BID 14 days dulaglutide (Trulicity) mg subcut finasteride 5 mg PO DAILY 90 days gabapentin 300 mg PO Q12H isosorbide mononitrate ER 60 mg PO DAILY metformin 500 mg PO QAM omeprazole 20 mg PO DAILY simvastatin 40 mg PO BEDTIME tamsulosin mg PO HPI Comments Details: Mark is a pleasant 69-year-old Dominican-speaking male patient of Dr. King he is accompanied by his INSURANCE PLAN SPECIALIST at today's office visit. He has a past medical history of coronary artery disease status post coronary artery bypass x4 in 2001 with known occlusion of the SVG to diagonal graft and SVG to PDA graft, diabetic neuropathy, hypertension, hyperlipidemia, footdrop, intermittent asthma, and obstructive sleep apnea. He presents to the office today for follow-up. Of note, patient was seen approximately 3 months ago as a new patient for ongoing urinary tract symptoms he had been experiencing as well as scrotal discomfort at which time imaging was ordered for further assessment evaluation as well as labs. These results were reviewed and communicated with the patient and his INSURANCE PLAN SPECIALIST today. Retroperitoneal ultrasound 03/23 bilateral kidneys are normal in echotexture. Bilateral renal cysts. 4 mm nonobstructing left renal calculi. The bladder is fluid-filled. Prostate gland measures 43 cc. Scrotal ultrasound 03/23 bilateral normal testes and epididymis. Small right hydrocele was loculated complex small hydrocele the bottom of the left scrotum. PSAs are as follows: PSA 09/20 4.2, 11/20 4.3, 03/23 4.4 % free PSA 38%. We did review PCPT risk calculator results. We also discussed at length potential causes of elevated PSA as well as hydroceles. He reports having completed Bactrim as prescribed during last office visit and does feel episodes of dysuria had improved shortly after completion of antibiotic therapy however feels symptoms have somewhat returned. He reports noting intermittent episodes of dysuria and nocturia. He reports right-sided scrotal discomfort he had been experiencing has significantly improved. He does report experiencing very mild discomfort however describes this pain as infrequent and manageable. In office urinalysis results reviewed with the patient today. PVR 23 mL. We did review and discuss at length further treatment options of hydrocele, intermittent lower urinary tract symptoms as well as elevated PSA. All questions were answered to the best of my ability. RACHEL was performed during last office visit in the left side of the prostate was noted to be boggy otherwise no nodules or masses palpated. He denies hematuria, foul smelling urine, changes to urinary stream, flank pain, fever, and or chills. He otherwise offers no other issues or concerns at this time. [facility] Medical History (Updated 03/15/25 @ 22:04 by Mare Livingston [facility]-) Urinary incontinence Type 2 diabetes mellitus with cataract Tubular adenoma Neurologic disorder associated with diabetes mellitus JUNIE (obstructive sleep apnea) Mild intermittent asthma without complication Hyperlipidemia GERD (gastroesophageal reflux disease) Foot drop HTN (hypertension) Diabetic nephropathy Review of Systems Const All systems reviewed & are unremarkable except as noted in HPI and below Physical Exam Const General: cooperative, comfortable, no acute distress, well developed, alert and awake Orientation/consciousness: patient oriented x3 Limitations: language barrier HEENT Head: Yes normal to inspection, Yes normocephalic and Yes atraumatic Ears: hearing grossly normal bilaterally Eyes General: appearance normal, both eyes and all related structures Neck Neck: Yes normal visual inspection and Yes trachea midline Chest Chest palpation & inspection: normal inspection of the chest Resp Effort & Inspection: normal respiratory effort and able to speak in complete sentences Cardio Rate: regular rate GI Inspection: Yes normal to inspection General: Yes no CVA tenderness Back/Spine/Pelvis Back: no CVA tenderness Skin General skin exam: no rashes or lesions noted Neuro General: patient oriented x3 Extrem General: Yes normal to inspection Psych Appearance: grossly normal and well kempt Mental Status: mental status grossly normal Speech and movement: Normal speech and movement present and Clear speech present Affect: normal affect Attitude: cooperative Thought process: Normal thought process present Thought content: Normal thought content present Insight: Fair insight present (Psych) Judgement: Fair judgement present (Psych) Office Procedures Post Void Residual Post Residual Void Post Void Residual (PVR): 23 [id number] Void Residual by ultrasound Results AMB Urinalysis, Automated UA Leukoctes 15 Meka/uL Last Edit by Katrin Lopez, A on 03/15/25 13:56 UA Nitrite Negative Last Edit by Katrin Lopez, A on 03/15/25 13:56 UA Urobilinogen 1 mg/dL Last Edit by Katrin Lopez, A on 03/15/25 13:56 UA Protein 15 mg/dL Last Edit by Katrin Lopez, A on 03/15/25 13:56 UA pH 6.0 Last Edit by Katrin Lopez, A on 03/15/25 13:56 UA Blood 0 Kelton/uL Last Edit by Katrin Lopez, A on 03/15/25 13:56 UA Specific [place] 1.020 Last Edit by Katrin Lopez, A on 03/15/25 13: 56 UA Ketone Negative Last Edit by Katrin Lopez, A on 03/15/25 13:56 UA Bilirubin 0 mg/dL Last Edit by Katrin Lopez, RMA on 03/15/25 13:56 UA Glucose 0 mg/dL Last Edit by Katrin Lopez, A on 03/15/25 13:56 Results Reviewed Results Reviewed: Laboratory Last Values Urine pH (Auto) 6.0 03/15/25 13:54 Specific [place] (Auto) 1.020 03/15/25 13:54 Urine Protein (Auto) 15 mg/dL 03/15/25 13:54 Glucose (UA)(Auto) 0 mg/dL 03/15/25 13:54 Urine Ketones (Auto) Negative 03/15/25 13:54 Urine Blood (Auto) 0 [place]/uL 03/15/25 13:54 Urine Nitrite (Auto) Negative 03/15/25 13:54 Urine Bilirubin (Auto) 0 mg/dL 03/15/25 13:54 Urine Urobilinogen (Auto) 1 mg/dL 03/15/25 13:54 Leukocyte Esterase (Auto) 15 Meka/uL 03/15/25 13:54 Date of Service: 03/08/25 Procedure(s): US scrotum A sonogram of the scrotum was performed assessing bergeron-scale appearance and color Doppler flow. Spectral Doppler analysis of the arterial and venous flow were performed in the testes bilaterally. FINDINGS: RIGHT: Right testicle measures 4.0 x 4.78 x 2.46 cm, volume 24.6 mL. No focal testicular parenchymal lesions are visualized. Spectral Doppler analysis of the arterial and venous flow is normal in the right testis. There is echogenic calcification along the lower pole right scrotum question calcification measuring 0.3 x 0.2 x 0.7 cm. Right epididymal head is normal in size. There is a right hydrocele with echogenic debris within. No varicocele seen. Right epididymal Doppler flow is normal. LEFT: Left testicle measures 5.01 x 2.39 x 2.83 cm, volume 17.7 mL. No focal testicular parenchymal lesions are visualized. There is round hypoechoic subcortical lesion measuring 0.4 x 0.4 x 0.6 cm likely a small appendix testes. Spectral Doppler analysis of the arterial and venous flow is normal in the left testis. Left epididymal head is normal in size. There is small epididymal cyst measuring 0.5 0.4 x 0.5 cm. Very small complex hydrocele is noted at the bottom of the scrotum. No varicocele is seen. Left epididymal Doppler flow is normal. IMPRESSION: Normal testes. Bilateral normal testes and epididymis except for small left epididymal cyst. Focal calcification along the anterior scrotal of right testes. Question left side appendix testes. Small right hydrocele and is loculated . Complex small hydrocele at the bottom of the left scrotum. ------ Date of Service: 03/08/25 Procedure(s): US retroperitoneal comp FINDINGS: RIGHT KIDNEY: 11 x 7 x 6 cm (SAG x AP x TRV). Normal echotexture. Renal cortical thickness is normal. There is a 7 cm exophytic anechoic lesion without septations or nodular components in the upper pole. No hydronephrosis. No solid lesion. LEFT KIDNEY: 12 x 5 x 4 cm (SAG x AP x TRV). Normal echotexture. Renal cortical thickness is normal. No hydronephrosis. There is a 4 mm hyperechoic structure in the midportion to lower pole. There is a 7 mm exophytic anechoic lesion in the lower pole without septations or nodular components. BLADDER: Fluid-filled. Bilateral ureteral jets are demonstrated. Prevoid bladder volume is 286 mL. Postvoid bladder volume is 116 mL. Prostate gland measures 4 x 4 x 5 cm and volume: 43 cc. There is protrusion of bone in the urinary bladder floor. IMPRESSION: 116 cc retained urine in a post void image. No hydronephrosis. Bilateral renal cysts. 4 mm nonobstructing nephrolithiasis, left kidney. Prostate gland volume: 43 cc. Assessment & Plan Assessment & Plan (1) Elevated PSA: Code(s): R97.20 - Elevated prostate specific antigen [PSA] Category: Medical (2) Lower urinary tract symptoms: Code(s): R39.9 - Unspecified symptoms and signs involving the genitourinary system Category: Medical (3) Nocturia: Code(s): R35.1 - Nocturia Category: Medical (4) Urinary frequency: Code(s): R35.0 - Frequency of micturition Category: Medical (5) Dysuria: Code(s): R30.0 - Dysuria Category: Medical (6) Hydrocele: Code(s): N43.3 - Hydrocele, unspecified Category: Medical (7) Nephrolithiasis: Code(s): N20.0 - Calculus of kidney Category: Medical (8) Renal cyst: Code(s): N28.1 - Cyst of kidney, acquired Category: Medical Plan In office urinalysis results reviewed with the patient today; as noted above. PVR 23 mL. Most recent retroperitoneal ultrasound results reviewed with the patient today; as noted above. Most recent scrotal imaging results reviewed with the patient today; as noted above. We did discussed potential causes of elevated PSA as well as further treatment options and risks and benefits of these treatment options. All questions were answered to the best of my ability. Start doxycycline as discussed and prescribed. Start finasteride as discussed and prescribed. We did discussed further treatment options of complex hydrocele as well as lower urinary tract symptoms patient continues to experience intermittently. Will obtain PSA in 3 months. Follow-up in 3 months with PSA and PVR; or sooner with any issues, concerns, and or questions. Orders: Orders AMB Urinalysis Automated Today Z13.9 - Encounter for screening, unspecified Urine Culture Today R39.9 - Unspecified symptoms and signs involving the genitourinary system PSA,Total (Free>4and<10) 3 Months R97.20 - Elevated prostate specific antigen [PSA] AMB Post Void Residual by ultrasound Today R35.0 - Frequency of micturition Medications: New doxycycline hyclate 100 mg PO BID 28 tabs 0RF 14 days N39.0 - Urinary tract infection, site not specified, N45.1 - Epididymitis finasteride 5 mg PO DAILY 90 tabs 1RF 90 days N13.8 - Other obstructive and reflux uropathy, N40.1 - Benign prostatic hyperplasia with lower urinary tract symptoms, R33.9 - Retention of urine, unspecified Discontinued sulfamethoxazole-trimethoprim 800-160 mg (Bactrim DS) Discontinued Reason: Doctor's Order 1 tab PO BID 14 days 28 tabs 0RF N39.0 - Urinary tract infection, site not specified Patient Instructions: The patient had an opportunity to ask questions regarding the treatment plan. All questions were answered. Physical exam, labs, and imaging were discussed and reviewed in detail. As well as risks, benefits, and discussion of treatment choices. No major barriers to understanding were identified. The patient expressed understanding and agreement with the above treatment plan. The patient was made aware they should contact our office by phone for worsening of their current condition, the appearance of new symptoms, or with any questions or concerns. Compliance is encouraged with any medications and follow up testing that is ordered. It is a privilege to be allowed the opportunity to participate in? your urological care.? Again, if you have any questions or concerns If you have any questions or concerns please do not hesitate to contact me. The office is [phone]. This note is constructed using voice recognition software. While every effort has been made to ensure accuracy cable installer repairer errors may have been included. Yours sincerely, DO Hall Coding Level of Care Code Est Pt Level 4 (55529) Complex EM visit Add On G2211 Diagnoses Elevated PSA R97.20 Lower urinary tract symptoms R39.9 Nocturia R35.1 Urinary frequency R35.0 Dysuria R30.0 Hydrocele N43.3 Nephrolithiasis N20.0 Renal cyst N28.1 CPT Codes Post Residual Void - PVR CPT Code: 11907-Tyqd Void Residual by ultrasound ([id number])
== END 2025-03-15 14:45 | disposition home or self-care (01) ==
LOC: HO.HUSH 13:29
PROVIDERS: PCP Internal Medicine; Visit Provider Nurse Practitioner Family
DX: R97.20 Elevated prostate specific antigen [PSA] (principal); R39.9 Unspecified symptoms and signs involving the genitourinary system; R35.1 Nocturia; R35.0 Frequency of micturition; R30.0 Dysuria; N43.3 Hydrocele, unspecified; N20.0 Calculus of kidney; N28.1 Cyst of kidney, acquired; Z13.9 Encounter for screening, unspecified
CPT/HCPCS: 99214; G2211

== ENCOUNTER 2025-03-15 13:29 | Outpatient (REF) | payer OTHER, SELFPAY ==
--- OUTSIDE RECORDS SUMMARY | 2025-03-16 03:58 | XMS_ITS | Clinical Summary ---
Author Organization [address] [place] [address] Address [address] [place] [address] Phone Care Team Providers Care Director Microbiology Name Role Phone Josué King MD Primary Care Provider [phone] Allergies No known active allergies Medications aspirin [...] needed for headaches. for pain 60 tablet 025 2024 Discontinued simvastatin (ZOCOR) 40 mg tablet TAKE 1 TABLET BY MOUTH AT BEDTIME 90 tablet 1 025 2024 Discontinued diclofenac (VOLTAREN) 1 % topical gel APPLY TOPICALLY TO THE AFFECTED AREA TWICE DAILY NEEDED FOR PAIN 100 g 1 2024 Discontinued carvediloL (COREG) 25 mg tablet TAKE 1 TABLET BY MOUTH TWICE DAILY 180 tablet 1 2024 Discontinued isosorbide mononitrate (IMDUR) 60 [...] diabe sofie mellitus with neurological manifestations, 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) ([facility] V24, [facility] V28) 03/03/2024 Urinary incontinence, post-void dribbling 2020 Diabetic neuropathy ([facility] [place], [facility] V28) 0 12/24/2018 Assessment & Plan (06/09/2024 11:41 AM EST): Type 2 diabetes mellitus wit h cataract ([facility] V24, [facility] V28) 12/24/2018 Assessment & Plan (06/09/2024 11:41 AM EST): Tubular adenoma 12/24/2018 Overview (07/04/2023): 05/2016 CN, Repeat 10 yrs Cataract 12/24/2018 Overview (07/04/2023): 2015 Small bilateral Essential hypertension 04/11/2017 Overview (07/04/2023): [...] JUNIE (obstructive sleep apnea) 02/28/2016 Overview (07/04/2023): [facility] Polysomnogram: Date 10/01/2018; Wt 190#; BMI 34; [...] Neurologic disorder associat ed with diabetes mellitus ([facility] V24, [facility] V28) 02/21/2016 GERD (gastroesophageal reflux disease) 6 Mild intermittent asthma without complication Foot drop 12/29/2014 Overview (07/04/2023): Left, r/t hip [place] Status post hip replacement 12/29/2014 Overview (07/04/2023): Left, 2006 [place] CAD (coronary artery disease) 07/02/2014 Overview (07/04/2023): [...] 03/01/2025 10:10 AM EST Lab Draw Station [address] [address] Elevated prostate specific antigen (PSA); Unspecified symptoms and signs involving the genitourinary system; Testicular pain; Nocturia; Frequency of micturition 03/01/2025 Results Follow-Up [facility] Cardiology [facility] [address] [place] [address] Leeann Griffin NP 03/01/2025 Telephone [facility] [address] [place] [address] Leeann Griffin NP 02/26/2025 9:00 AM EDT Ancillary Procedure [facility] Cardiology [facility] [address] [place] [phone] Coronary artery disease involving [place] coronary artery of [place] heart without angina pectoris 02/24/2025 Results Follow-Up [address] [phone] Orville Wheatley NP 02/15/2025 9:40 AM EDT Office Visit [facility] [address] [place] [phone] Leeann Griffin NP Coronary artery disease involving [place] coronary artery of [place] heart without angina pectoris (Primary Dx); Other hyperlipidemia; Essential hypertension 02/09/2025 10:15 AM EDT Office Visit [address] [phone] Orville Wheatley NP Type 2 diabetes mellitus with cataract (CMS/HCC V24, CMS/HCC V28) (Primary Dx); Essential hypertension; Other hyperlipidemia; Dysuria; Benign prostatic hyperplasia without lower urinary tract symptoms 01/21/2025 Telephone Adult Medicine [address] [phone] Josué King MD 01/20/2025 Telephone [facility] [address] [place] [address] Morro Juarez MD 01/07/2025 10:30 AM EDT Consult [facility] Medicine [address] [phone] Josué King MD Preop cardiovascular exam (Primary Dx); Coronary artery disease involving [place] coronary artery of [place] heart without angina pectoris; Type 2 diabetes mellitus with cataract (CMS/HCC V24, CMS/HCC V28); Essential hypertension; Other hyperlipidemia 01/05/2025 Telephone Orthopedic Surgery - [place] [address] [facility] [address] [place] [address] Jona Zhanganda 12/23/2024 10:15 AM EDT Office Visit Adult Medicine [address] [phone] Orville Wheatley, FREDO Intermittent chest pain (Primary Dx); Coronary artery disease involving [place] coronary artery of [place] heart without angina pectoris; Acute cystitis with hematuria; Benign prostatic hyperplasia, unspecified whether lower urinary tract symptoms present; Type I (juvenile type) diabetes mellitus with neurological manifestations, 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) (CMS/[facility] V24, CMS/[facility] V28); Essential hypertension; Other hyperlipidemia; Encounter for examination following treatment at hospital 12/23/2024 Telephone Adult Medicine [address] [phone] Stnoe Peter [place] 12/14/2024 Telephone Adult Medicine [address] [phone] Orville hWeatley NP from Last 3 Months Immunizations Immunization Administration [...] GRAFT 2001 PROCEDURE: HISTORICAL CABG; COMMENT: [place] HIP ARTHROPLASTY 2005 Left PROCEDURE: HISTORICAL HIP REPLACEMENT; COMMENT: in [place], sciatic nerve issues & foot drop following [...] hypertension 04/11/2017 DX:Essent ial hypertension Diabetic neuropathy ([facility] V24, [facility] V28) 12/24/2018 DX:Diabetic neuropathy (HCC) DM (diabetes mellitus), type 2 with neurological complications ([facility] V24, [facility] V28) 02/21/2016 DX:DM (diabetes mellitus), t ype 2 with neurological complications (HCC) Cataract 12/24/2018 DX:Cataract; COM MENT: 2015 Small bilateral Foot drop 12/29/2014 DX:Foot drop; CO MMENT: Left, r/t hip replacement [place] Status post hip replacement 12/29/2014 DX:S tatus post hip replacement; COMMENT: Left, 2005 [place] Type 2 diabetes mellitus wit h cataract ([facility] V24, [facility] V28) 12/24/2018 DX:Type 2 diabetes mellitus with cataract ([facility]) Tubular adenoma 12/24/2018 DX:Tubular adeno ma; COMMENT: 05/2016 CN, Repeat 10 yrs BPH (benign prostatic hyperplasia) 07/02/2014 DX:BPH (benign prostatic hyperplasia) CAD (coronary artery disease) 07/02/2014 DX :CAD (coronary artery disease); COMMENT: S/p CABG in 2001, f/u cardiology at [facility] Edema 12/29/2014 DX:Edema Hyperlipidemia 07/02/2014 DX:Hyperlipidemi a [...] AM EST Office Visit Orthopedic Surgery - [place] 250 175 [facility] [address] [place] [phone] Stone Al DPM [address] [phone] 04/16/2025 1:10 PM EST Office Visit [facility] [address] [place] [phone] Leeann Griffin NP [address] [place] [address] [address] [place] [phone] 05/05/2025 9:00 AM EST Ancillary Procedure [facility] Cardiology [facility] [address] [email or web address] [address] [place] [phone] 06/14/2025 11:00 AM EST Office Visit Adult Medicine [address] [phone] Josué King MD [address] [place] [address] Health Maintenance Due Date Last Done Comments [...] history exists Depression Screening Completed 06/09/2024, 06/06/19 24 Medicare [...] Procedure Name Priority Date/Time Associated Diagnosis Comments EXTERNAL ULTRASOUND REPORT 03/08/2025 EXTERNAL ULTRASOUND REPORT 03/08/2025 PSA TOTAL, FREE AND COMPLEXED, DIAGNOSTIC Routine 03/01/2025 10:13 AM EST Elevated prostate specific antigen (PSA) Unspecified symptoms and signs involving the genitourinary system Testicular pain Nocturia Frequency of micturition NM LEXISCAN STRESS TEST W/ MYOCARDIAL PERFUSION Routine 02/26/2025 11:36 AM EDT Coronary artery disease involving [place] coronary artery of [place] heart without angina pectoris NARVAEZ URINE CULTURE TUBE Routine 02/09/2025 11:16 AM EDT Type 2 diabetes mellitus with cataract ([facility]/HCC V24, [facility] V28) Essential hypertension Other hyperlipidemia Benign prostatic hyperplasia without lower urinary tract symptoms Dysuria URINALYSIS WITH REFLEX MICROSCOPIC AND CULTURE Routine 02/09/2025 11:16 AM EDT Type 2 diabetes mellitus with cataract ([facility] V24, CMS/[facility] V28) Essential hypertension Other hyperlipidemia Benign prostatic hyperplasia without lower urinary tract symptoms Dysuria HEMOGLOBIN A1C Routine 02/09/2025 11:16 AM EDT Essential hypertension URINALYSIS WITH REFLEX MICROSCOPIC AND CULTURE Routine 02/09/2025 11:16 AM EDT Type 2 diabetes mellitus with cataract ([facility]/HCC V24, CMS/HCC V28) Essential hypertension Other hyperlipidemia Benign prostatic hyperplasia without lower urinary tract symptoms Dysuria ECG ANNOTATED 12/14/2024 COMPREHENSIVE METABOLIC PANEL STAT 12/11/2024 12:44 PM EDT MICROALBUMIN CREATININE URINE RATIO Routine 09/07/2024 11:11 [...] diabetes mellitus with other diabetic neurological complication (CMS/[facility] V24, CMS/HCC V28) Encounter for screening for cardiovascular disorders COLONOSCOPY Routine 05/16/2016 HEPATITIS C SCREENING Routine 05/04/2016 from Last 3 Months or Most Recently Relevant to Health Maintenance Results * External Ultrasound Report (03/08/2025) Only the most recent of2 resultswithin the time period is included. Anatomical Region Laterality Modality Ultrasound Provider [facility] IMG US PROCEDURES Final Result * (ABNORMAL) PSA total, free and complexed (03/01/2025 10:13 AM EST) Pathologist [facility] PSA 4.43(H) 0.00 - 4.00 ng/mL LAB CHEMISTRY METHOD 03/01/2025 3:50 PM EST [facility] PSA, Complexed 2.74 0.00 - 3.00 ng/mL LAB CHEMISTRY METHOD 03/01/2025 3:50 PM EST [facility] PSA, Free 1.7 ng/mL LAB CHEMISTRY METHOD 03/01/2025 3:50 PM EST [facility] PSA, Free Pct 38.4 >25.0 % LAB CHEMISTRY METHOD 03/01/2025 3:50 PM EST [facility] Blood Venous blood specimen / Unknown Venipuncture / Unknown 03/01/2025 10:13 AM EST 03/01/2025 10:16 AM EST Narrative [facility] - 03/01/2025 3:50 PM EST Free PSA is a calculated value. The diagnostic usefulness of % free PSA has not been established in patients with Total PSA below 2.6 or above 10 ng/mL. This test was performed using the Centaur Chemiluminescent method. PSA values obtained with other methods cannot be used interchangeably. Mare Livingston [facility] BLOOD ORDERABLES Final Result [facility] [address] [place] [address], [place] [phone] * NM LEXISCAN STRESS TEST W/ MYOCARDIAL [...] and culture (02/09/2025 11:16 AM EDT) Specific [place] Urine 1.030 1.003 - 1.030 LAB URINALYSIS - AUTOMATED METHOD 02/09/2025 2:24 PM [facility] pH, Urine 5.0 5.0 - 8.0 pH LAB URINALYSIS - AUTOMATED METHOD 02/09/2025 2:24 PM [facility] Leukocytes, Urine Negative Negative LAB URINALYSIS - AUTOMATED METHOD 02/09/2025 2:24 PM [facility] Nitrite, Urine Negative Negative LAB URINALYSIS - AUTOMATED METHOD 02/09/2025 2:24 PM [facility] Protein, Urine Negative <=Trace mg/dL LAB URINALYSIS - AUTOMATED METHOD 02/09/2025 2:24 PM [facility] Glucose, Urine 500(A) Negative mg/dL LAB URINALYSIS - AUTOMATED METHOD 02/09/2025 2:24 PM [facility] Ketones, Urine Trace(A) Negative mg/dL LAB URINALYSIS - AUTOMATED METHOD 02/09/2025 2:24 PM [facility] Urobilinogen, Urine 0.2 0.2 - 1.0 mg/dL LAB URINALYSIS - AUTOMATED METHOD 02/09/2025 2:24 PM EDT [facility] Bilirubin, Urine Negative Negative LAB URINALYSIS - AUTOMATED METHOD 02/09/2025 2:24 PM EDT [facility] Blood, Urine Negative Negative LAB URINALYSIS - AUTOMATED METHOD 02/09/2025 2:24 PM EDT [facility] Urine Urine specimen obtained by clean catch procedure / Unknown Non-blood Collection / Unknown 02/09/2025 11:16 AM EDT 02/09/2025 11:16 AM EDT Orville Wheatley LPN PER DIEM LAB URINE ORDERABLES Final R esult Performing Organization Address City/[facility]/ZIP Co de Phone Number [facility] [address] [place] [address], [place] [phone] * Narvaez urine culture tube (02/09/2025 11:16 AM EDT) Extra Tube Hold for add-ons. 02/09/2025 3:01 PM EDT [facility] Comment:Auto resulted. Urine Urine specimen obtained by clean catch procedure / Unknown Non-blood Collection / Unknown 02/09/2025 11:16 AM EDT 02/09/2025 11:16 AM EDT Orville Wheatley LPN PER DIEM LAB URINE ORDERABLES Final R esult [facility] [address] [place] [address], [place] [phone] * Hemoglobin A1c (02/09/2025 11:16 AM EDT) Hemoglobin A1C 6.2 <6.5 % LAB CHEMISTRY METHOD 02/09/2025 9:59 PM EDT [facility] Mean Bld Glu Estim. 131 mg/dL LAB CHEMISTRY METHOD 02/09/2025 9:59 PM EDT [facility] Blood Venous blood specimen / Unknown Venipuncture / Unknown 02/09/2025 11:16 AM EDT 02/09/2025 11:16 AM EDT Orville Wheatley NP LAB BLOOD ORDERABLES Final R esult [facility] [address] [place] [address], [place] [phone] * ECG-Annotated (12/14/2024) us Provider Onbase MD ECG ORDERABLES Final Result * Comprehensive metabolic panel (12/11/2024 12:44 PM EDT) Sodium 138 133 - 145 mmol/L LAB CHEMISTRY METHOD 12/11/2024 2:14 PM [facility] Potassium 4.4 3.5 - 5.5 mmol/L LAB CHEMISTRY METHOD 12/11/2024 2:14 PM [facility] Chloride 105 96 - 110 mmol/L LAB CHEMISTRY METHOD 12/11/2024 2:14 PM [facility] CO2 28 21 - 32 mmol/L LAB CHEMISTRY METHOD 12/11/2024 2:14 PM [facility] Anion Gap 5 3 - 11 LAB CHEMISTRY METHOD 12/11/2024 2:14 PM [facility] Glucose 87 70 - 100 mg/dL LAB CHEMISTRY METHOD 12/11/2024 2:14 PM [facility] BUN 19 5 - 25 mg/dL LAB CHEMISTRY METHOD 12/11/2024 2:14 PM [facility] Creatinine 1.09 0.70 - 1.30 mg/dL LAB CHEMISTRY METHOD 12/11/2024 2:14 PM [facility] eGFR 73 >=60 mL/min/1. 73m2 LAB CHEMISTRY METHOD 12/11/2024 2:14 PM EDT [facility] Comment:Calculation based on the Chronic Kidney Disease Epidemiology Collaboration (CKD-EPI) equation refit without adjustment for race. BUN/Creatinine Ratio 17.4 LAB CHEMISTRY METHOD 12/11/2024 2:14 PM T [facility] Calcium 10.2 8.5 - 10.5 mg/dL LAB CHEMISTRY METHOD 12/11/2024 2:14 PM [facility] AST (SGOT) 13 10 - 42 unit/L LAB CHEMISTRY METHOD 12/11/2024 2:14 PM [facility] ALT (SGPT) 17 10 - 60 unit/L LAB CHEMISTRY METHOD 12/11/2024 2:14 PM [facility] Alkaline Phosphatase 85 42 - 121 unit/L LAB CHEMISTRY METHOD 12/11/2024 2:14 PM [facility] Total Protein 7.5 6.0 - 8.0 g/dL LAB CHEMISTRY METHOD 12/11/2024 2:14 PM [facility] Albumin 4.0 3.2 - 5.0 g/dL LAB CHEMISTRY METHOD 12/11/2024 2:14 PM [facility] Total Bilirubin 0.4 0.0 - 1.4 mg/dL LAB CHEMISTRY METHOD 12/11/2024 2:14 PM [facility] Blood Venous blood specimen / Unknown Venipuncture / Unknown 12/11/2024 12:44 PM EDT 12/11/2024 1:33 PM EDT us Magdi Koehler MD LAB BLOOD ORDERABLES Final Resu lt [facility] [address] [place] [address], * Microalbumin creatinine urine ratio (09/07/2024 11:11 AM EDT) Creatinine, Urine 106.0 mg/dL LAB CHEMISTRY METHOD 09/07/2024 2:16 PM EDT [facility] Microalb, Ur 7.2 0.0 - 29.0 mg/L LAB CHEMISTRY METHOD 09/07/2024 2:16 PM EDT [facility] Microalb/Creat Ratio 7 <30 mg/g creat LAB CHEMISTRY METHOD 09/07/2024 2:16 PM EDT [facility] Urine Urine specimen obtained by clean catch procedure / Unknown Non-blood Collection / Unknown 09/07/2024 11:11 AM EDT 09/07/2024 11:11 AM EDT us Orville Wheatley LPN PER DIEM LAB URINE ORDERABLES Final R esult [facility] [address] [place] [address], * Lipid panel with reflex to direct LDL (05/29/2024 9:39 AM EST) Cholesterol 136 0 - 200 mg/dL LAB CHEMISTRY METHOD 05/29/2024 2:17 PM [facility] Triglycerides 85 0 - 150 mg/dL LAB CHEMISTRY METHOD 05/29/2024 2:17 PM [facility] HDL 62 >=40 mg/dL LAB CHEMISTRY METHOD 05/29/2024 2:17 PM EST [facility] LDL Calculated 57 0 - 100 mg/dL LAB CHEMISTRY METHOD 05/29/2024 2:17 PM [facility] VLDL Cholesterol Royce 17 mg/dL LAB CHEMISTRY METHOD 05/29/2024 2:17 PM [facility] Non HDL Chol. (LDL+VLDL) 74 <145 mg/dL LAB CHEMISTRY METHOD 05/29/2024 2:17 PM [facility] Chol/HDL Ratio 2.2 0.0 - 4.4 LAB CHEMISTRY METHOD 05/29/2024 2:17 PM EST [facility] Blood Venous blood specimen / Unknown Venipuncture / Unknown 05/29/2024 9:39 AM EST 05/29/2024 9:39 AM EST Orville Wheatley LPN PER DIEM LAB BLOOD ORDERABLES Final R esult [facility] [address] [place] [address], * Falls Risk Assessment (07/09/2023) [facility] Falls Risk Assessment Abstracted Historical Provider MD HEALTH MAINTENANCE Final Result * Diabetes Foot Exam (07/09/2023) Pathologist [facility] Diabetes: Annual Foot Exam Abstracted [facility] Provider HEALTH MAINTENANCE Final Result * Diabetes Eye Exam (06/18/2023) Pathologist [facility] Diabetes: Annual Retina Eye Exam Abstracted Historical Provider MD HEALTH MAINTENANCE Final Result * Depression Screening (06/06/2023) Pathologist [facility] Depression Screening Abstracted Historical Provider MD HEALTH MAINTENANCE Final Result * ABDOMINAL AORTA REAL TIME SCREEN STUDY AAA [...] C Screening (05/04/2016) Hepatitis C Screening Abstracted Result [facility] Historical Provider HEALTH MAINTENANCE Final Result from Last 3 Months or Most Recently Relevant to Health Maintenance Insurance [facility] Member Subscriber Plan / Payer (Ef fective 2019-Present) Name:Mark BEY Relation to Subscriber:Self Name:Mark Ford Payer ID:[id number] Group ID:[id number] Type:Not on file Address: [place] [address] [address] [phone] Care Teams Director Microbiology Relationship Specialty Start Date End Date Josué King MD [address] [place] [id number] PCP - General Internal Medicine 01/26/21
--- OUTSIDE RECORDS SUMMARY | 2025-03-16 03:58 | XMS_ITS | Encounter Summary ---
Author Organization [facility] Address [address] [place] [address] Care Team Providers Care Cooling Tower Technician Name Role Phone Josué King MD Primary Care Provider [phone] Encounter Details Date Type Department Care Team (Late Contact Info) Description 03/01/2025 Results Follow-Up [facility] Cardiology [facility] [address] [place] [address] Leeann Griffin NP [address] [place] [address] Dr [address] [place] [phone] Social History Tobacco Use Types Packs/Day Years [...] AM EST Office Visit Orthopedic Surgery - [place] [address] [address] Stone Al DPM [address] [address] 04/16/2025 1:10 PM EST Office Visit [facility] [address] [place] [address] Leenan Griffin NP [address] [place] [address] [address] [place] [address] 05/05/2025 9:00 AM EST Ancillary Procedure [facility] - [address] [place] [phone] 06/14/2025 11:00 AM EST Office Visit Adult Medicine [facility] [address] [place] [address] Josué King MD [address] [place] [address] documented as of this encounter Visit Diagnoses Not on filedocumented in this encounter Additional Health Concerns Assessment Noted Time PHQ-9 Depression Total Score: 0 06/09/19 11:04 AM EST A fall risk assessment has been complete d for the patient 06/09/2024 10:57 AM EST documented as of this encounter Care Teams Cooling Tower Technician Relationship Specialty Start Date End Date Josué King MD [address] [place] [address] PCP - General Internal Medicine 01/26/21 documented as of this encounter
== END 2025-03-15 13:30 | disposition home or self-care (01) ==
LOC: HO.LAB 13:29
PROVIDERS: PCP Internal Medicine; Visit Provider Nurse Practitioner Family
DX: N28.1 Cyst of kidney, acquired (principal); N20.0 Calculus of kidney; R97.20 Elevated prostate specific antigen [PSA]; R39.9 Unspecified symptoms and signs involving the genitourinary system; R35.1 Nocturia; R35.0 Frequency of micturition; R30.0 Dysuria; N43.3 Hydrocele, unspecified; Z13.89 Encounter for screening for other disorder
CPT/HCPCS: 51798; 81003; 87086; 99212